=== PATIENT | male | born 1960 ===

== ENCOUNTER 2018-06-23 20:32 | Emergency (ER) | payer OTHER ==
[2018-06-23 20:41] VITALS: RESP 16
--- NOTE | 2018-06-23 20:49 | C.PDOC ---
History Of Present Illness 58 year old male presents to the emergency department with complaints of increased blood sugar over the last few days. Patient states that he experienced nausea and vomiting today, but denies fever or chills. He states that he has not been checking his sugar levels for the last few days. Time Seen by Provider: 06/23/18 20:49 Chief Complaint (Nursing): High Blood Sugar History Per: Patient History/Exam Limitations: no limitations Onset/Duration Of Symptoms: Days Current Symptoms Are (Timing): Still Present Severity: Moderate Pain Scale Rating Of: 4 Associated Infectious Symptoms: Nausea, Vomiting. denies: Other (fever, chills) Past Medical History Reviewed: Historical Data, Nursing Documentation, Vital Signs Vital Signs: Last Vital Signs Temp 97.8 F 06/23/18 20:38 Pulse 90 06/23/18 20:38 Resp 16 06/23/18 20:38 BP 142/98 H 06/23/18 20:38 Pulse Ox 99 06/23/18 20:38 - Medical History PMH: HTN Surgical History: No Surg Hx Family History: States: No Known Family Hx - Social History Hx Alcohol Use: No Hx Substance Use: No Review Of Systems Constitutional: Negative for: Fever, Chills Gastrointestinal: Positive for: Nausea, Vomiting Physical Exam - Physical Exam Appears: Non-toxic, In Acute Distress (anxious) Skin: Warm, Dry Head: Normacephalic Eye(s): bilateral: Normal Inspection, PERRL, EOMI Oral Mucosa: Moist Neck: Trachea Midline, Supple Chest: Symmetrical, No Tenderness Cardiovascular: Rhythm Regular, No Murmur Respiratory: No Rales, No Rhonchi, No Wheezing Gastrointestinal/Abdominal: Soft, No Tenderness, No Guarding, No Rebound Pulses: Left Dorsalis Pedis: Normal, Right Dorsalis Pedis: Normal Neurological/Psych: Oriented x3 ED Course And Treatment - Laboratory Results Result Diagrams: 06/23/18 20:59 06/23/18 20:59 ECG: Interpreted By Me, Viewed By Me ECG Rhythm: Sinus Rhythm (88) O2 Sat by Pulse Oximetry: 99 (RA) Pulse Ox Interpretation: Normal Progress Note: Plan: VBG. EKG. Beta Hydroxybutyrate. CMP. CBC. Ativan 0.5mg. NaCl IV Fluids. Zofran 4mg IVP. Urinalysis Reevaluation Time: 23:41 Reassessment Condition: Improved Disposition Counseled Patient/Family Regarding: Studies Performed, Diagnosis, Need For Followup - Disposition Disposition: HOME/ ROUTINE Disposition Time: 20:49 Condition: FAIR Additional Instructions: please return if symptoms recur Instructions: Hyperglycemia, Adult (DC) Forms: [facility] ([place]riac) - Clinical Impression Clinical Impression: Hyperglycemia - Scribe Statement The provider has reviewed the documentation as recorded by the Scribe (Ever Ricardo) Provider Attestation: All medical record entries made by the Scribe were at my direction and personally dictated by me. I have reviewed the chart and agree that the record accurately reflects my personal performance of the history, physical exam, medical decision making, and the department course for this patient. I have also personally directed, reviewed, and agree with the discharge instructions and disposition.
[2018-06-23] MEDS ORDERED: Sodium Chloride 0.9% 1,000 ML IV ONE (20:50)
[2018-06-23 21:03] LABS: VENOUS BLOOD GAS BASE EXCESS 0.8 mmol/L (0.0-2.0); VENOUS BLOOD GAS PCO2 46 mmHg (40-60); VENOUS BLOOD GAS PO2 43 mm/Hg (30-55); VENOUS BLOOD PH 7.37 (7.32-7.43)
[2018-06-23 21:05] LABS: BASO % 0.7 % (0.0-2.0); EOS % 0.7 % (0.0-4.0); HEMOGLOBIN 14.4 g/dL (12.0-18.0); LYMPH # 2.3 K/uL (1.0-4.3); LYMPH % 33.9 % (20.0-40.0); MEAN CELL VOLUME 96.3 fL (80.0-94.0); MEAN CORPUSCULAR HEMOGLOBIN 31.8 pg (27.0-31.0); MEAN PLATELET VOLUME 9.3 fL (7.2-11.7); MONO # 0.5 K/uL (0.0-0.8); MONO % 6.6 % (0.0-10.0); NEUT % 58.1 % (50.0-75.0); RBC 4.54 Mil/uL (4.40-5.90); WHITE BLOOD COUNT 6.9 K/uL (4.8-10.8)
[2018-06-23 21:17] LABS: ALB/GLOB RATIO 1.6 (1.0-2.1); ALBUMIN 3.8 g/dL (3.5-5.0); ALT/SGPT 96 U/L (21-72); AST/SGOT 69 U/L (17-59); BLOOD UREA NITROGEN 11 mg/dL (9-20); GFR NON-AFRICAN AMERICAN > 60
[2018-06-23 21:18] LABS: URINE BILIRUBIN NEGATIVE (NEGATIVE); URINE BLOOD NEGATIVE (NEGATIVE); URINE CLARITY Clear (Clear); URINE COLOR Straw (YELLOW); URINE GLUCOSE (UA) 3+ mg/dL (Normal); URINE LEUKOCYTE ESTERASE NEG Leu/uL (Negative); URINE PROTEIN NEGATIVE (NEGATIVE); URINE UROBILINOGEN NORMAL mg/dL (0.2-1.0)
[2018-06-23 21:53] VITALS: PULSE 86
[2018-06-23 22:00] VITALS: O2SAT 99
[2018-06-23 23:36] LABS: VENOUS BLOOD GAS BASE EXCESS -11.4 mmol/L (0.0-2.0); VENOUS BLOOD GAS PCO2 25 mmHg (40-60); VENOUS BLOOD GAS PO2 44 mm/Hg (30-55); VENOUS BLOOD PH 7.32 (7.32-7.43)
[2018-06-24 00:15] VITALS: BP 113/62; TEMP 98
--- NOTE | 2018-06-25 21:59 | CARD ---
APPROVED REPORT Date of service: 06/23/2018 EKG Measurement Heart [id number] <Conclusion> Normal sinus rhythm Normal ECG
== END 2018-06-24 00:16 | disposition home or self-care (01) ==
LOC: C.ER 20:32
DX: R73.9 Hyperglycemia, unspecified (principal); I10 Essential (primary) hypertension
CPT/HCPCS: 80053; 81001; 82009; 82803; 82948; 85025; 93005; 96374; 96375; 99285; J2060; J2405; J7030

== ENCOUNTER 2018-08-25 20:13 | Inpatient (IN) | payer OTHER ==
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
[2018-08-25 21:29] LABS: BASO # 0.2 K/uL (0.0-0.2); BASO % 3.1 % (0.0-2.0); EOS # 0.1 K/uL (0.0-0.7); EOS % 1.1 % (0.0-4.0); HEMOGLOBIN 14.9 g/dL (12.0-18.0); LYMPH # 1.6 K/uL (1.0-4.3); LYMPH % 26.6 % (20.0-40.0); MEAN CELL VOLUME 96.1 fL (80.0-94.0); MEAN CORPUSCULAR HEMOGLOBIN 32.7 pg (27.0-31.0); MEAN PLATELET VOLUME 9.7 fL (7.2-11.7); MONO # 0.4 K/uL (0.0-0.8); MONO % 6.8 % (0.0-10.0); NEUT # 3.8 K/uL (1.8-7.0); NEUT % 62.4 % (50.0-75.0); NRBC % 0.1 % (0.0-2.0); PLATELET COUNT 156 K/uL (130-400); RBC 4.57 Mil/uL (4.40-5.90); RED CELL DISTRIBUTION WIDTH 14.3 % (11.5-14.5); WHITE BLOOD COUNT 6.1 K/uL (4.8-10.8)
[2018-08-25 21:40] LABS: ALB/GLOB RATIO 1.3 (1.0-2.1); ALBUMIN 3.5 g/dL (3.5-5.0); ALT/SGPT 66 U/L (21-72); AST/SGOT 104 U/L (17-59); BLOOD UREA NITROGEN 14 mg/dL (9-20); CALCIUM 8.3 mg/dl (8.6-10.4); GFR NON-AFRICAN AMERICAN > 60
[2018-08-25 21:48] LABS: BASOPHIL 1 % (0-2); EOSINOPHIL 2 % (0-4); LYMPHOCYTE 16 % (20-40); MONOCYTE 7 % (0-10); NEUTROPHIL 74 % (50-75); PLATELET ESTIMATE NORMAL (NORMAL); TOTAL CELLS COUNTED 100
[2018-08-25 21:49] LABS: ANISOCYTOSIS SLIGHT
[2018-08-25 21:50] LABS: LARGE PLATELETS PRESENT
[2018-08-25] MEDS ORDERED: (Novolin R) Insulin Human Regular 100 units/ml vial SC STA (22:06)
[2018-08-25 22:19] LABS: URINE BACTERIA RARE (<OCC); URINE BILIRUBIN NEGATIVE (NEGATIVE); URINE BLOOD NEGATIVE (NEGATIVE); URINE CLARITY Clear (Clear); URINE COLOR Yellow (YELLOW); URINE GLUCOSE (UA) 3+ mg/dL (Normal); URINE LEUKOCYTE ESTERASE NEG Leu/uL (Negative); URINE PROTEIN NEGATIVE (NEGATIVE); URINE UROBILINOGEN NORMAL mg/dL (0.2-1.0)
[2018-08-25] MEDS ORDERED: (Novolin R) Insulin Human Regular 100 units/ml vial ONE (22:22)
[2018-08-25 22:35] LABS: BARBITURATES, UR NEGATIVE (NEGATIVE); BENZODIAZEPINES, UR NEGATIVE (NEGATIVE); OPIATES, UR NEGATIVE (NEGATIVE); PHENCYCLIDINE, UR NEGATIVE (NEGATIVE)
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
[2018-08-26 06:43] VITALS: O2SAT 100
[2018-08-26] MEDS ORDERED: (Novolin R) Insulin Human Regular 100 units/ml vial SC ONE ×2 (07:48→12:47)
[2018-08-26] MEDS ORDERED: Glucagon Recombinant 1 mg Inj IM PRN ×2 (12:58→23:28)
[2018-08-26] MEDS ORDERED: Dextrose 50% SYRINGE Inj (50 ml) IV PRN (12:58)
--- NOTE | 2018-08-26 13:06 | CP.PCM.CON ---
<Alicia Buchanan - Last Filed: 08/26/18 14:48> History of Present Illness - History of Present Illness History of Present Illness: PGY-1 Alicia Buchanan D.O. Medicine consult note for Dr. Davalos's service: Patient is a 58 yo male with a history of T2DM, HTN, depression, and alcohol use who is admitted to the psychiatric unit for suicidal ideation and depression. Hospitalists were consulted for elevated blood glucose and vomiting. His glucose is elevated in the 300s, requiring stat doses of insulin. Additionally, patient's BAL on admission was 274. Patient states that he was diagnosed with DM about 30 years ago. He has a strong family history of DM. He takes oral meds and insulin at home. He states that he checks his sugar every morning, and it is always in the 300s. He checks again at night and it is always in the 500s-600s. He denies previous hospitalization for DKA. He says he sees his PMD every 3 months and has been compliant with his meds (except yesterday when he was admitted). Denies seeing an automatic transmission mechanic. He also endorses decreased appetite, vomiting, and weight loss over the past 3 months. He says he went from 160 to 133 lb during this time. He had an EGD, and, per patient, no abnormalities found. He is scheduled to have a colonoscopy this coming . Patient reports vomiting "water" 3 times this morning. A one time dose of Zofran relieved his nausea. He currently denies nausea but states he does not have an appetite and did not eat lunch. He denies fevers, chills, chest pain, SOB, abdominal pain, diarrhea, constipation. PMH: T2DM HTN Depression Denies heart or kidney disease PSH: b/l hernia repair Meds: Metformin 1000 mg PO BID Glipizide 40 mg PO daily Humalog 20 units QAM, 30 units QPM Antidepressant- patient does not recall name All: iodine- hives FH: Mother, father, sister- DM Mother- 2 MIs, renal transplant SH: Lives in [place] with Has 5 adult children Works as cook at [employer] Smoked 5 cigs/day x 43 yrs- quit 7 months ago Drinks 3 shots of vodka/day x 43 yrs Denies illicit drug use, including IVDA PMD: Dr. Eagle Review of Systems - Constitutional Constitutional: As Per HPI, Anorexia, Weight Loss. absent: Chills, Fever, Headache - EENT Eyes: absent: Change in Vision Ears: absent: Decreased Hearing Nose/Mouth/Throat: absent: Nasal Congestion - Cardiovascular Cardiovascular: absent: Chest Pain, Dyspnea, Irregular Heart Rhythm, Palpitations - Respiratory Respiratory: absent: Cough, Dyspnea - Gastrointestinal Gastrointestinal: As Per HPI, Nausea, Vomiting. absent: Abdominal Pain, Constipation, Diarrhea - Genitourinary Genitourinary: absent: Dysuria, Hematuria - Musculoskeletal Musculoskeletal: absent: Myalgias, Numbness, Tingling - Integumentary Integumentary: absent: Lesions, Rash - Neurological Neurological: Tremor. absent: Dizziness, Numbness, Focal Weakness, Syncope, Tingling, Weakness - Psychiatric Psychiatric: Anxiety, Depression, Suicidal Ideation. absent: Hallucinations - Endocrine Endocrine: absent: Fatigue, Palpitations, Polydipsia, Polyphagia, Polyuria - Hematologic/Lymphatic Hematologic: absent: Easy Bleeding, Easy Bruising, Lymphadenopathy Past Patient History - Infectious Disease Hx of Infectious Diseases: None - Tetanus Immunizations Tetanus Immunization: Unknown - Past Medical History & Family History Past Medical History?: Yes Pertinent Family History: mother, father, sister- DM - Past Social History Smoking Status: Never Smoked Chewing Tobacco Use: No Cigar Use: No Alcohol: Social Drugs: Denies Home Situation {Lives}: With Family () - CARDIAC Hx Cardiac Disorders: No Hx Hypertension: Yes - PULMONARY Hx Respiratory Disorders: No Hx Tuberculosis: No - NEUROLOGICAL HX Cerebrovascular Accident: No Hx Seizures: Yes (Pt reported having a seizure 1 yr ago.) - HEENT Hx HEENT Problems: No - ENDOCRINE/METABOLIC Hx Diabetes Mellitus Type 2: Yes - HEMATOLOGICAL/ONCOLOGICAL Hx Blood Disorders: No Hx Cancer: No Hx Human Immunodeficiency Virus (HIV): No - INTEGUMENTARY Hx Dermatological Problems: No - MUSCULOSKELETAL/RHEUMATOLOGICAL Hx Musculoskeletal Disorders: No - GASTROINTESTINAL Hx Gastrointestinal Disorders: No - GENITOURINARY/GYNECOLOGICAL Hx Genitourinary Disorders: No Hx Sexually Transmitted Disorders: No - PSYCHIATRIC Hx Substance Use: No - SURGICAL HISTORY Hx Herniorrhaphy: Yes (30 yrs ago) - ANESTHESIA Hx Anesthesia: No Meds Allergies/Adverse Reactions: Allergies Allergy/AdvReac Type Severity Reaction Status Date / Time iodine Allergy SHORTNESS Verified 08/26/18 00:42 OF BREATH shellfish derived Allergy SHORTNESS Verified 08/26/18 00:42 OF BREATH - Medications Medications: Current Medications Clonidine HCl (Catapres) 0.1 mg PO Q4H PRN PRN Reason: Symptoms of alcohol withdrawl Folic Acid (Folic Acid) 1 mg PO DAILY [facility] Hydroxyzine HCl (Atarax) 50 mg PO Q6H PRN PRN Reason: Anxiety Last Admin: 08/26/18 00:38 Dose: 50 mg Ibuprofen (Motrin Tab) 400 mg PO Q6 PRN PRN Reason: Pain, moderate (4-7) Influenza Virus Vaccine (Fluzone Quad [id number]) 60 mcg IM .ONCE ONE Stop: 08/29/18 10:01 Lorazepam (Ativan) 2 mg PO Q4 [facility]; Taper Stop: 08/31/18 12:29 Lorazepam (Ativan) 1 mg PO Q4H PRN PRN Reason: Symptoms of alcohol withdrawl Multivitamins (Hexavitamin) 1 tab PO DAILY [facility] Ondansetron HCl (Zofran Inj) 4 mg IM DAILY@ONCE PRN PRN Reason: Nausea/Vomiting Last Admin: 08/26/18 12:26 Dose: 4 mg Pneumococcal Polyvalent Vaccine (Pneumovax 23 Vaccine) 0.5 ml IM .ONCE ONE Stop: 08/29/18 10:01 Thiamine HCl (Vitamin B1 Tab) 100 mg PO DAILY [facility] Trazodone HCl (Desyrel) 50 mg PO HS PRN PRN Reason: insomnia Stop: 09/25/18 00:24 Last Admin: 08/26/18 00:38 Dose: 50 mg Physical Exam - Constitutional Appears: No Acute Distress - Head Exam Head Exam: ATRAUMATIC, NORMAL INSPECTION, NORMOCEPHALIC - Eye Exam Eye Exam: EOMI, Normal appearance, PERRL - ENT Exam ENT Exam: Mucous Membranes Moist - Neck Exam Neck exam: Positive for: Normal Inspection - Respiratory Exam Respiratory Exam: Clear to Auscultation Bilateral, NORMAL BREATHING PATTERN - Cardiovascular Exam Cardiovascular Exam: REGULAR RHYTHM, +S1, +S2 - GI/Abdominal Exam GI & Abdominal Exam: Normal Bowel Sounds, Soft - Rectal Exam Rectal Exam: Deferred - Extremities Exam Extremities exam: Positive for: normal inspection. Negative for: pedal edema, tenderness - Back Exam Back exam: NORMAL INSPECTION - Neurological Exam Neurological exam: Alert, CN II-XII Intact, Normal Gait, Oriented x3 - Psychiatric Exam Psychiatric exam: Normal Affect, Normal Mood - Skin Skin Exam: Dry, Intact, Normal Color, Warm Results - Vital Signs Recent Vital Signs: Last Vital Signs Temp 99.0 F 08/26/18 06:42 Pulse 96 H 08/26/18 06:42 Resp 19 08/26/18 06:42 BP 156/87 H 08/26/18 06:42 Pulse Ox 100 08/26/18 06:42 - Labs Result Diagrams: 08/25/18 21:24 08/26/18 14:08 Labs: Laboratory Results - last 24 hr 08/25/18 08/25/18 08/25/18 21:24 21:24 22:14 WBC 6.1 RBC 4.57 Hgb 14.9 Hct 43.9 MCV 96.1 H MCH 32.7 H MCHC 34.0 RDW 14.3 Plt Count 156 MPV 9.7 Neut % (Auto) 62.4 Lymph % (Auto) 26.6 Saunders % (Auto) 6.8 Eos % (Auto) 1.1 Baso % (Auto) 3.1 H Neut # (Auto) 3.8 Lymph # (Auto) 1.6 Saunders # (Auto) 0.4 Eos # (Auto) 0.1 Baso # (Auto) 0.2 Neutrophils % (Manual) 74 Lymphocytes % (Manual) 16 L Monocytes % (Manual) 7 Eosinophils % (Manual) 2 Basophils % (Manual) 1 Platelet Estimate Normal Large Platelets Present Anisocytosis (manual) Slight Macrocytosis (manual) Slight Sodium 134 Potassium 4.7 Chloride 96 L Carbon Dioxide 22 Anion Gap 21 H BUN 14 Creatinine 0.7 L Est GFR ( Amer) > 60 Est GFR (Non-Af Amer) > 60 POC Glucose (mg/dL) Random Glucose 355 H Calcium 8.3 L Phosphorus 2.9 Magnesium 1.4 L Total Bilirubin 0.9 AST 104 H D ALT 66 Alkaline Phosphatase 183 H Total Protein 6.2 L Albumin 3.5 Globulin 2.7 Albumin/Globulin Ratio 1.3 Urine Color Yellow Urine Clarity Clear Urine pH 6.0 Ur Specific Marshall 1.029 Urine Protein Negative Urine Glucose (UA) 3+ H Urine Ketones Trace Urine Blood Negative Urine Nitrate Negative Urine Bilirubin Negative Urine Urobilinogen Normal Ur Leukocyte Esterase Neg Urine WBC (Auto) 1 Urine RBC (Auto) < 1 Urine Bacteria Rare Urine Opiates Screen Urine Methadone Screen Ur Barbiturates Screen Ur Phencyclidine Scrn Ur Amphetamines Screen U Benzodiazepines Scrn U Oth Cocaine Metabols U Cannabinoids Screen Alcohol, Quantitative 274 H 08/25/18 08/26/18 08/26/18 22:14 07:32 09:57 WBC RBC Hgb Hct MCV MCH MCHC RDW Plt Count MPV Neut % (Auto) Lymph % (Auto) Saunders % (Auto) Eos % (Auto) Baso % (Auto) Neut # (Auto) Lymph # (Auto) Saunders # (Auto) Eos # (Auto) Baso # (Auto) Neutrophils % (Manual) Lymphocytes % (Manual) Monocytes % (Manual) Eosinophils % (Manual) Basophils % (Manual) Platelet Estimate Large Platelets Anisocytosis (manual) Macrocytosis (manual) Sodium Potassium Chloride Carbon Dioxide Anion Gap BUN Creatinine Est GFR ( Amer) Est GFR (Non-Af Amer) POC Glucose (mg/dL) 336 H 329 H Random Glucose Calcium Phosphorus Magnesium Total Bilirubin AST ALT Alkaline Phosphatase Total Protein Albumin Globulin Albumin/Globulin Ratio Urine Color Urine Clarity Urine pH Ur Specific Marshall Urine Protein Urine Glucose (UA) Urine Ketones Urine Blood Urine Nitrate Urine Bilirubin Urine Urobilinogen Ur Leukocyte Esterase Urine WBC (Auto) Urine RBC (Auto) Urine Bacteria Urine Opiates Screen Negative Urine Methadone Screen Negative Ur Barbiturates Screen Negative Ur Phencyclidine Scrn Negative Ur Amphetamines Screen Negative U Benzodiazepines Scrn Negative U Oth Cocaine Metabols Negative U Cannabinoids Screen Negative Alcohol, Quantitative 08/26/18 12:20 WBC RBC Hgb Hct MCV MCH MCHC RDW Plt Count MPV Neut % (Auto) Lymph % (Auto) Saunders % (Auto) Eos % (Auto) Baso % (Auto) Neut # (Auto) Lymph # (Auto) Saunders # (Auto) Eos # (Auto) Baso # (Auto) Neutrophils % (Manual) Lymphocytes % (Manual) Monocytes % (Manual) Eosinophils % (Manual) Basophils % (Manual) Platelet Estimate Large Platelets Anisocytosis (manual) Macrocytosis (manual) Sodium Potassium Chloride Carbon Dioxide Anion Gap BUN Creatinine Est GFR ( Amer) Est GFR (Non-Af Amer) POC Glucose (mg/dL) 338 H Random Glucose Calcium Phosphorus Magnesium Total Bilirubin AST ALT Alkaline Phosphatase Total Protein Albumin Globulin Albumin/Globulin Ratio Urine Color Urine Clarity Urine pH Ur Specific Marshall Urine Protein Urine Glucose (UA) Urine Ketones Urine Blood Urine Nitrate Urine Bilirubin Urine Urobilinogen Ur Leukocyte Esterase Urine WBC (Auto) Urine RBC (Auto) Urine Bacteria Urine Opiates Screen Urine Methadone Screen Ur Barbiturates Screen Ur Phencyclidine Scrn Ur Amphetamines Screen U Benzodiazepines Scrn U Oth Cocaine Metabols U Cannabinoids Screen Alcohol, Quantitative - EKG Data EKG Interpreted by: Myself EKG shows normal: Sinus rhythm Rate: Normal - EKG Data EKG comments: QTc 464 Assessment & Plan - Assessment and Plan (Free Text) Assessment: Patient is a 58 yo male with history of T2DM and HTN. He is currently admitted to the psych unit for depression and suicidal ideation. Medicine consulted for elevated glucose and vomiting. Patient is being worked up as an outpatient for vomiting and weight loss. Patient reports uncontrolled glucose at home despite m edication compliance. Plan: Type 2 diabetes mellitis- presently complaining of vomiting, r/o DKA - BMP: CO2 33, K 4, BG 240 - AG 8 - Beta-hydroxybutarate 0.09 - ABG pending - A1c 9.9 - Lipid panel wnl - UA: 3+ glucose, trace ketones - EKG: NSR, QTc 464 - Hypoglycemic protocol - Accuchecks ACHS with ISS (low) - Diabetic diet - Restart home DM meds - Metformin 100 mg PO BID - Glipizide 40 mg PO daily - Novolog 20 u SC QAM, 30 u SC QPM Hypertension - Monitor vitals Q4H - Clonidine 0.1 mg PO Q4H PRN - Lisinopril 5 mg PO daily Depression with suicidal ideation - Management as per psychiatry - Trazodone 50 mg PO QHS Alcohol use disorder - Withdrawal management as per psychiatry - BAL 278 on admission - AST 104, ALT 66 - CXR: no signs of aspiration - Ativan 2 mg PO Q4H - Ativan 1 mg PO Q4H PRN - Clonidine 0.1 mg PO Q4H PRN - Motrin 400 mg PO Q6H PRN - Atarax 50 mg PO Q6H PRN - MV, thiamine, folate - Cessation counseling H/o Tobacco use- 5 cigarettes/day x43 years - Lung screen 08/09/18: Lung-RADS: 2, solid 5 millimeter nodule with very low likelihood of becoming a clinically active cancer due to size. Continue annual screening with LDCT in 12 months. - CXR: Mild venous congestion. Right hilar prominence. Patchy increased markings in the right infrahilar region. Tortuous aorta. Top normal heart size. Biapical pleural thickening. Case was discussed with attending, Dr. Davalos. Patient is not in DKA. No indication to be transferred to med/surg at this time. Will continue to follow the patient. <Germania Davalos V - Last Filed: 08/26/18 23:59> Meds - Medications Medications: Current Medications Clonidine HCl (Catapres) 0.1 mg PO Q4H PRN PRN Reason: Symptoms of alcohol withdrawl Dextrose (Glutose 15) 0 gm PO ONCE PRN; Protocol PRN Reason: Hypoglycemia Protocol Dextrose (Dextrose 50% Inj) 0 ml IVP .STAT PRN; Protocol PRN Reason: Hypoglycemia Protocol Dextrose (Glutose 15) 0 gm PO .ONCE PRN; Protocol PRN Reason: Hypoglycemia Protocol Enalapril Maleate (Vasotec) 10 mg PO DAILY [facility] Last Admin: 08/26/18 15:52 Dose: 10 mg Folic Acid (Folic Acid) 1 mg PO DAILY [facility] Last Admin: 08/26/18 13:09 Dose: 1 mg Glipizide (Glucotrol) 40 mg PO DAILY [facility] Glucagon (Glucagen Diagnostic Kit) 0 mg IM STAT PRN; Protocol PRN Reason: Hypoglycemia Protocol Glucagon (Glucagen Diagnostic Kit) 0 mg IM .STAT PRN; Protocol PRN Reason: Hypoglycemia Protocol Hydroxyzine HCl (Atarax) 50 mg PO Q6H PRN PRN Reason: Anxiety Last Admin: 08/26/18 00:38 Dose: 50 mg Dextrose (Dextrose 5% In Water 1000 Ml) 1,000 mls @ 0 mls/hr IV .Q0M PRN; Protocol PRN Reason: Hypoglycemia Protocol Ibuprofen (Motrin Tab) 400 mg PO Q6 PRN PRN Reason: Pain, moderate (4-7) Influenza Virus Vaccine (Fluzone Quad [id number]) 60 mcg IM .ONCE ONE Stop: 08/29/18 10:01 Insulin Aspart (Novolog) 0 unit SC ACHS [facility]; Protocol Last Admin: 08/26/18 21:57 Dose: Not Given Insulin Aspart (Novolog) 20 unit SC ACB [facility] Insulin Aspart (Novolog) 30 unit SC QPM [facility] Last Admin: 08/26/18 18:49 Dose: Not Given Lorazepam (Ativan) 2 mg PO Q4 [facility]; Taper Stop: 08/31/18 12:29 Last Admin: 08/26/18 20:19 Dose: Not Given Lorazepam (Ativan) 1 mg PO Q4H PRN PRN Reason: Symptoms of alcohol withdrawl Metformin HCl (Glucophage) 1,000 mg PO BIDCC [facility] Last Admin: 08/26/18 17:33 Dose: 1,000 mg Multivitamins (Hexavitamin) 1 tab PO DAILY [facility] Last Admin: 08/26/18 13:09 Dose: 1 tab Ondansetron HCl (Zofran Inj) 4 mg IM DAILY@ONCE PRN PRN Reason: Nausea/Vomiting Last Admin: 08/26/18 12:26 Dose: 4 mg Ondansetron HCl (Zofran Tab) 4 mg PO Q6 PRN PRN Reason: Nausea/Vomiting Pneumococcal Polyvalent Vaccine (Pneumovax 23 Vaccine) 0.5 ml IM .ONCE ONE Stop: 08/29/18 10:01 Thiamine HCl (Vitamin B1 Tab) 100 mg PO DAILY [facility] Last Admin: 08/26/18 13:09 Dose: 100 mg Trazodone HCl (Desyrel) 50 mg PO HS PRN PRN Reason: insomnia Stop: 09/25/18 00:24 Last Admin: 08/26/18 22:10 Dose: 50 mg Results - Vital Signs Recent Vital Signs: Last Vital Signs Temp 99.0 F 08/26/18 06:42 Pulse 85 08/26/18 16:08 Resp 19 08/26/18 06:42 BP 155/94 H 08/26/18 16:08 Pulse Ox 100 08/26/18 06:42 - Labs Result Diagrams: 08/25/18 21:24 08/26/18 14:08 Labs: Laboratory Results - last 24 hr 08/26/18 08/26/18 08/26/18 07:32 09:57 12:20 Sodium Potassium Chloride Carbon Dioxide Anion Gap BUN Creatinine Est GFR ( Amer) Est GFR (Non-Af Amer) POC Glucose (mg/dL) 336 H 329 H 338 H Random Glucose Hemoglobin A1c Calcium Phosphorus Magnesium Triglycerides Cholesterol LDL Cholesterol Direct HDL Cholesterol B-Hydroxybutyrate 08/26/18 08/26/18 08/26/18 14:07 14:08 16:26 Sodium 133 Potassium 4.0 Chloride 92 L Carbon Dioxide 33 H Anion Gap 12 BUN 16 Creatinine 0.6 L Est GFR ( Amer) > 60 Est GFR (Non-Af Amer) > 60 POC Glucose (mg/dL) 103 Random Glucose 240 H Hemoglobin A1c 9.9 H Calcium 8.7 Phosphorus 2.6 Magnesium 1.5 L Triglycerides 52 Cholesterol 138 LDL Cholesterol Direct 62 HDL Cholesterol 91 H B-Hydroxybutyrate 0.09 08/26/18 20:03 Sodium Potassium Chloride Carbon Dioxide Anion Gap BUN Creatinine Est GFR ( Amer) Est GFR (Non-Af Amer) POC Glucose (mg/dL) 109 Random Glucose Hemoglobin A1c Calcium Phosphorus Magnesium Triglycerides Cholesterol LDL Cholesterol Direct HDL Cholesterol B-Hydroxybutyrate Attending/Attestation - Attestation I have personally seen and examined this patient.: Yes I have fully participated in the care of the patient.: Yes I have reviewed all pertinent clinical information: Yes Notes (Text): Medicine consult patient with known history of diabetes, uncontrolled. Patient reports he takes humalog 15 in AM; 30 in PM; metformin, glipizde. he reports his sugars are 300 in the morning and are 500 in the evening. Patient has been getting stat doses of insulin by psych prior to consult. held off glipizde. Awaiting a1c. Patient does not have an elevated b-hydroxybutyrate. Patient does not have an elevated gap. Will seek endocrinology as well. Patient had been previously vomitting earlier but is now controlled at time of evaluation. Patient had been given zofran which has helped. Patient reports he is chronic drinker for multiple years with depression symptoms. He has not taken his medications day of admission including insulin. We have adjusted his diet. Restarted his home medications. Added accuchecks Q6H. Assessment/Plan 1) Type 2 diabetes mellitis- presently complaining of vomiting, r/o DKA Assessment/Plan * uncontrolled * Patient is not in DKA--> BMP: CO2 33, K 4, BG 240 and AG 8 * Beta-hydroxybutarate 0.09 * A1c 9.9 * Lipid panel wnl * UA: 3+ glucose, trace ketones * EKG: NSR, QTc 464 * Hypoglycemic protocol * Accuchecks Q6H with ISS (low) * Diabetic diet * Restart home DM meds - Metformin 100 mg PO BID - hel d Glipizide 40 mg PO daily - Novolog 10 u SC QAM, 30 u SC QPM 2) Hypertension Assessment/Plan * Monitor vitals Q4H * Clonidine 0.1 mg PO Q4H PRN * Lisinopril 5 mg PO daily 3) Depression with suicidal ideation * Management as per psychiatry * Trazodone 50 mg PO QHS 4) Alcohol use disorder * Withdrawal management as per psychiatry * BAL 278 on admission * AST 104, ALT 66 * CXR: no signs of aspiration * Ativan 2 mg PO Q4H * Ativan 1 mg PO Q4H PRN * Clonidine 0.1 mg PO Q4H PRN * Motrin 400 mg PO Q6H PRN * Atarax 50 mg PO Q6H PRN * MV, thiamine, folate * Cessation counseling 5) H/o Tobacco use- 5 cigarettes/day x43 years * Lung screen 08/09/18: Lung-RADS: 2, solid 5 millimeter nodule with very low likelihood of becoming a clinically active cancer due to size. Continue annual screening with LDCT in 12 months. * CXR: Mild venous congestion. Right hilar prominence. Patchy increased markings in the right infrahilar region. Tortuous aorta. Top normal heart size. Biapical pleural thickening.
[2018-08-26] MEDS: Multiple Vitamins Tab PO SCH (13:09)
--- NOTE | 2018-08-26 13:53 | PCM.PSYCH ---
Initial Psychiatric Evaluation - Initial Psychiatric Evaluation Type of Admission: Voluntary Legal Status: Capacity Chief Complaint (in patient's own words): I'm depressed and started having some bad thoughts. History of Present Illness and Precipitating Events: Patient is a 58 years old, , employed, male with history of depression and suicidal ideations for last 7 months, was taking some antidepressive medications prescribed by his PCP. Patient couldn't recall the name of the medications. Patient reported that yesterday he attempted to kill himself by grabbing a knife, family intervened and brought the patient to ER for evaluation and treatment. Patient reported that he lost some weight due to decreased appetite. Also reported decreased sleep. Denied any psychotic, manic or anxiety symptoms. No history of previous inpatient psychiatric admission. This is patient's first admission. Patient was evaluated using translation services. [employer] [id number]. Alcohol: Started at 11 years of age, increased gradually. Last used yesterday, 3 shots of vodka. Denied use of any other drugs including cocaine, cannabis or heroin. Doesn't smoke cigarettes. Patient was born in [place], has eighth grade of education. Migrated to [facility] in 1975. Working. Patient's and has 5 grown up children. Lives with family. His height is 5 feet 7 inches and weight is 133 pounds. Current Medications: Active Medications Generic Name Dose Route Start Last Admin Trade Name Freq PRN Reason Stop Dose Admin Clonidine HCl 0.1 mg 08/26/18 12:17 Catapres PO Q4H PRN Symptoms of alcohol withdrawl Dextrose 0 gm 08/26/18 12:58 Glutose 15 PO ONCE PRN Hypoglycemia Protocol Protocol Folic Acid 1 mg 08/26/18 12:30 08/26/18 13:09 Folic Acid PO 1 mg DAILY DAJUAN Administration Glucagon 0 mg 08/26/18 12:58 Glucagen Diagnostic Kit IM STAT PRN Hypoglycemia Protocol Protocol Hydroxyzine HCl 50 mg 08/26/18 00:25 08/26/18 00:38 Atarax PO 50 mg Q6H PRN Administration Anxiety Ibuprofen 400 mg 08/26/18 12:19 Motrin Tab PO Q6 PRN Pain, moderate (4-7) Influenza Virus Vaccine 60 mcg 08/29/18 10:00 Fluzone Quad [id number] IM 08/29/18 10:01 .ONCE ONE Insulin Aspart 0 unit 08/26/18 16:30 Novolog SC ACHS DAJUAN Protocol Lorazepam 2 mg 08/26/18 12:30 Ativan PO 08/31/18 12:29 Q4 DAJUAN Taper Lorazepam 1 mg 08/26/18 12:17 Ativan PO Q4H PRN Symptoms of alcohol withdrawl Multivitamins 1 tab 08/26/18 12:30 08/26/18 13:09 Hexavitamin PO 1 tab DAILY DAJUAN Administration Ondansetron HCl 4 mg 08/26/18 10:15 08/26/18 12:26 Zofran Inj IM 4 mg DAILY@ONCE PRN Administration Nausea/Vomiting Pneumococcal Polyvalent Vaccine 0.5 ml 08/29/18 10:00 Pneumovax 23 Vaccine IM 08/29/18 10:01 .ONCE ONE Thiamine HCl 100 mg 08/26/18 12:30 08/26/18 13:09 Vitamin B1 Tab PO 100 mg DAILY DAJUAN Administration Trazodone HCl 50 mg 08/26/18 00:23 08/26/18 00:38 Desyrel PO 09/25/18 00:24 50 mg HS PRN Administration insomnia Past Psychiatric History - Past Psychiatric History Previous Treatment History: None History of Abuse: None reported History of ETOH/Drug Use: See HPI History of Family Illness: None reported Pertinent Medical Hx (Current Medical&Sleep Prob, Allergies): Allergies Allergy/AdvReac Type Severity Reaction Status Date / Time iodine Allergy SHORTNESS Verified 08/26/18 00:42 OF BREATH shellfish derived Allergy SHORTNESS Verified 08/26/18 00:42 OF BREATH RX: Unobtainable 06/23/18 Diabetes mellitus Hypertension Review of Systems - Psychiatric Psychiatric: As Per HPI, Depression, Suicidal Ideation, Other Mental Status Examination - Personal Presentation Personal Presentation: Looks stated age - Affect Affect: Depressed - Motor Activity Motor Activity: Calm - Reliability in Providing Information Reliability in Providing Information: Fair - Speech Speech: Organized - Mood Mood: Depressed - Formal Thought Process Formal Thought Process: No Impairment - Hallucinations/Delusions Hallucinations: Other (None reported) Delusions: Other - Obsessions/Compulsions Obsessions: None Compulsions: None - Cognitive Functions Orientation: Person, Place, Situation, Time Sensorium: Alert Attention/Concentration: Attentive Abstract Thinking: [place] Estimate of Intelligence: Average Judgement: Intact, as evidence by: Insight regarding need for hospitalization Memory: Recent intact, as evidence by: Ability to recall events of the day, Remote intact, as evidenced by: Ability to recall historical events - Risk Risk: Withdrawal, Diminished functioning - Strength & Assets Inventory Strength & Assets Inventory: Family support, Cooperative - Limitations Limitations: Other (Lives with family) DSM 5 DX - DSM 5 DSM 5 Diagnosis: Major depressive disorder recurrent severe without psychotic features. Alcohol withdrawal. Alcohol use disorder severe. - Recommended/Plan of Treatment Treatment Recommendations and Plan of Treatment: Patient education. Neck Supportive therapy. CBT for relapse prevention. DC for abstinence. We'll start Ativan taper for alcohol withdrawal symptoms. Other when necessary medications. Projected ELOS: 8-10 days - Smoking Cessation Smoking Cessation Initiated: No Reason for not providing: Patient doesn't smoke cigarettes.
--- NOTE | 2018-08-26 14:13 | RAD ---
Chest x-ray single frontal view History: Aspiration. Comparison: None available. Findings: Mild venous congestion. Right hilar prominence. Patchy increased markings in the right infrahilar region. Tortuous aorta. Top normal heart size. Biapical pleural thickening. Degenerative changes in the spine. Degenerative changes in the shoulders with suggestion of a loose osteochondral body at the right glenohumeral joint space. Impression: Mild venous congestion. Right hilar prominence. Patchy increased markings in the right infrahilar region. Tortuous aorta. Top normal heart size. Biapical pleural thickening. Degenerative changes in the spine. Degenerative changes in the shoulders with suggestion of a loose osteochondral body at the right glenohumeral joint space.
[2018-08-26 14:35] LABS: BLOOD UREA NITROGEN 16 mg/dL (9-20); CALCIUM 8.7 mg/dl (8.6-10.4); GFR NON-AFRICAN AMERICAN > 60; HDL CHOLESTEROL 91 mg/dL (30-70)
[2018-08-26 14:38] LABS: LDL CHOLESTEROL 62 mg/dL (0-129)
[2018-08-26] MEDS ORDERED: Magnesium Chloride 64 mg ER Tab PO SCH (15:00)
[2018-08-26] MEDS ORDERED: GlipiZIDE 10 mg SR Tab PO SCH (16:00)
[2018-08-26] MEDS: (Novolog) Insulin Aspart, Recombinant 100 u/ml 10 ml vial SC SCH ×2 (16:37→21:57)
[2018-08-26] MEDS ORDERED: (Novolog) Insulin Aspart, Recombinant 100 u/ml 10 ml vial SC SCH (18:00)
[2018-08-26] MEDS ORDERED: Dextrose 50% SYRINGE Inj (50 ml) IVP PRN (23:28)
[2018-08-27] MEDS ORDERED: (Novolog) Insulin Aspart, Recombinant 100 u/ml 10 ml vial SC SCH ×2 (07:30)
[2018-08-27] MEDS: (Novolog) Insulin Aspart, Recombinant 100 u/ml 10 ml vial SC SCH ×6 (08:14→21:56)
--- NOTE | 2018-08-27 08:18 | CP.PCM.PN ---
<Víctor Worthy - Last Filed: 08/27/18 14:16> Subjective - Date & Time of Evaluation Date of Evaluation: 08/27/18 Time of Evaluation: 08:18 - Subjective Subjective: HOSPITALIST SERVICE- CONSULT Pt seen and examined in lunch room sitting comfortably eating breakfast. Pt denies any acute events overnight, no vomiting, reports a normal bm last night and normal urinary output/ color. Pt denies cp sob fc nausea loss of vision. Objective - Vital Signs/Intake and Output Vital Signs (last 24 hours): Temp Pulse Resp BP Pulse Ox 98.7 F 112 H 20 131/90 100 08/27/18 07:48 08/27/18 07:48 08/27/18 07:48 08/27/18 07:48 08/26/18 06:42 - Medications Medications: Current Medications Clonidine HCl (Catapres) 0.1 mg PO Q4H PRN PRN Reason: Symptoms of alcohol withdrawl Dextrose (Glutose 15) 0 gm PO ONCE PRN; Protocol PRN Reason: Hypoglycemia Protocol Dextrose (Dextrose 50% Inj) 0 ml IVP .STAT PRN; Protocol PRN Reason: Hypoglycemia Protocol Dextrose (Glutose 15) 0 gm PO .ONCE PRN; Protocol PRN Reason: Hypoglycemia Protocol Enalapril Maleate (Vasotec) 10 mg PO DAILY [facility] Last Admin: 08/26/18 15:52 Dose: 10 mg Folic Acid (Folic Acid) 1 mg PO DAILY [facility] Last Admin: 08/26/18 13:09 Dose: 1 mg Glucagon (Glucagen Diagnostic Kit) 0 mg IM STAT PRN; Protocol PRN Reason: Hypoglycemia Protocol Glucagon (Glucagen Diagnostic Kit) 0 mg IM .STAT PRN; Protocol PRN Reason: Hypoglycemia Protocol Hydroxyzine HCl (Atarax) 50 mg PO Q6H PRN PRN Reason: Anxiety Last Admin: 08/26/18 00:38 Dose: 50 mg Dextrose (Dextrose 5% In Water 1000 Ml) 1,000 mls @ 0 mls/hr IV .Q0M PRN; Protocol PRN Reason: Hypoglycemia Protocol Ibuprofen (Motrin Tab) 400 mg PO Q6 PRN PRN Reason: Pain, moderate (4-7) Influenza Virus Vaccine (Fluzone Quad [id number]) 60 mcg IM .ONCE ONE Stop: 08/29/18 10:01 Insulin Aspart (Novolog) 0 unit SC ACHS [facility]; Protocol Last Admin: 08/27/18 08:14 Dose: 5 units Insulin Aspart (Novolog) 30 unit SC QPM [facility] Last Admin: 08/26/18 18:49 Dose: Not Given Insulin Aspart (Novolog) 15 unit SC ACB [facility] Last Admin: 08/27/18 08:13 Dose: 15 units Lorazepam (Ativan) 2 mg PO Q4 [facility]; Taper Stop: 08/31/18 12:29 Last Admin: 08/27/18 08:10 Dose: 2 mg Lorazepam (Ativan) 1 mg PO Q4H PRN PRN Reason: Symptoms of alcohol withdrawl Metformin HCl (Glucophage) 1,000 mg PO BIDCC [facility] Last Admin: 08/26/18 17:33 Dose: 1,000 mg Multivitamins (Hexavitamin) 1 tab PO DAILY [facility] Last Admin: 08/26/18 13:09 Dose: 1 tab Ondansetron HCl (Zofran Inj) 4 mg IM DAILY@ONCE PRN PRN Reason: Nausea/Vomiting Last Admin: 08/26/18 12:26 Dose: 4 mg Ondansetron HCl (Zofran Tab) 4 mg PO Q6 PRN PRN Reason: Nausea/Vomiting Pneumococcal Polyvalent Vaccine (Pneumovax 23 Vaccine) 0.5 ml IM .ONCE ONE Stop: 08/29/18 10:01 Thiamine HCl (Vitamin B1 Tab) 100 mg PO DAILY [facility] Last Admin: 08/26/18 13:09 Dose: 100 mg Trazodone HCl (Desyrel) 50 mg PO HS PRN PRN Reason: insomnia Stop: 09/25/18 00:24 Last Admin: 08/26/18 22:10 Dose: 50 mg - Labs Labs: 08/25/18 21:24 08/26/18 14:08 - Additional Findings Additional findings: - Constitutional Appears: No Acute Distress - Head Exam Head Exam: ATRAUMATIC, NORMAL INSPECTION, NORMOCEPHALIC - Eye Exam Eye Exam: EOMI, Normal appearance, PERRL - ENT Exam ENT Exam: Mucous Membranes Moist - Neck Exam Neck exam: Positive for: Normal Inspection - Respiratory Exam Respiratory Exam: Clear to Auscultation Bilateral, NORMAL BREATHING PATTERN - Cardiovascular Exam Cardiovascular Exam: REGULAR RHYTHM, +S1, +S2 - GI/Abdominal Exam GI & Abdominal Exam: Normal Bowel Sounds, Soft - Rectal Exam Rectal Exam: Deferred - Extremities Exam Extremities exam: Positive for: normal inspection. Negative for: pedal edema, tenderness - Back Exam Back exam: NORMAL INSPECTION - Neurological Exam Neurological exam: Alert, CN II-XII Intact, Normal Gait, Oriented x3 - Psychiatric Exam Psychiatric exam: Normal Affect, Normal Mood - Skin Skin Exam: Dry, Intact, Normal Color, Warm Assessment and Plan - Assessment and Plan (Free Text) Assessment: Patient is a 58 yo male with history of T2DM and HTN. He is currently admitted to the psych unit for depression and suicidal ideation. Medicine consulted for elevated glucose and vomiting. Patient is being worked up as an outpatient for vomiting and weight loss. Patient reports uncontrolled glucose at home despite medication compliance. Plan: Type 2 diabetes mellitis - BMP: CO2 33, K 4, BG 240 - AG 8 - Beta-hydroxybutarate 0.09 - ABG pending - A1c 9.9 - Lipid panel wnl - UA: 3+ glucose, trace ketones - EKG: NSR, QTc 464 - Hypoglycemic protocol - Accuchecks ACHS with ISS (low) - Diabetic diet: food tray was seen to have syrup and orange juice, called dietary for strict adherence to diet recs - Metformin 100 mg PO BID - Novolog 15 u SC QAM, 30 u SC QPM -Dietary consulted; f/u recs -Dr Alden Ocampo consulted; f/u recs Hypertension - Monitor vitals Q4H - Clonidine 0.1 mg PO Q4H PRN - Lisinopril 5 mg PO daily Depression with suicidal ideation - Management as per psychiatry - Trazodone 50 mg PO QHS Alcohol use disorder - Withdrawal management as per psychiatry - BAL 278 on admission - AST 104, ALT 66 - CXR: no signs of aspiration - Ativan 2 mg PO Q4H - Ativan 1 mg PO Q4H PRN - Clonidine 0.1 mg PO Q4H PRN - Motrin 400 mg PO Q6H PRN - Atarax 50 mg PO Q6H PRN - MV, thiamine, folate - Cessation counseling H/o Tobacco use- 5 cigarettes/day x43 years - Lung screen 08/09/18: Lung-RADS: 2, solid 5 millimeter nodule with very low likelihood of becoming a clinically active cancer due to size. Continue annual screening with LDCT in 12 months. - CXR: Mild venous congestion. Right hilar prominence. Patchy increased markings in the right infrahilar region. Tortuous aorta. Top normal heart size. Biapical pleural thickening. -PMD notifyed Case was discussed with attending, Dr. Davalos. Patient is not in DKA. No indication to be transferred to med/surg at this time. Will continue to follow the patient. <Germania Davalos V - Last Filed: 08/31/18 20:46> Objective - Vital Signs/Intake and Output Vital Signs (last 24 hours): Temp Pulse Resp BP Pulse Ox 98.6 F 98 H 18 140/90 100 08/31/18 06:48 08/31/18 06:48 08/31/18 06:48 08/31/18 09:10 08/26/18 06:42 - Labs Labs: 08/29/18 08:28 08/31/18 08:29 Attending/Attestation - Attestation I have personally seen and examined this patient.: Yes I have fully participated in the care of the patient.: Yes I have reviewed all pertinent clinical information, including history, physical exam and plan: Yes Notes (Text): This is late computer entry for 08/27/18. Patient seen, examined and case discussed with bacteriologist medical. Medicine is consult Patient seen this morning. His sugars are uncontrolled in spite of combination of insulin and oral agents. Endocrinology on board help appreciated. Prior regiment adjusted by endocrinology. Assessment/Plan 1) Type 2 diabetes mellitus Assessment/Plan * uncontrolled; A1c 9.9 * Patient is not in DKA--> BMP: CO2 33, K 4, BG 240 and AG 8 * Beta-hydroxybutarate 0.09 * Lipid panel wnl * UA: 3+ glucose, trace ketones * EKG: NSR, QTc 464 * Hypoglycemic protocol * Accuchecks Q6H with ISS (low) * Diabetic diet * Endocrinology on board help appreciated * Novolog insulin sliding scale subq * Novolog 14 unit subqAC * Lantus 20 units subqHS * Metformin 1000mg PO BID * Enalapril 10mg PO daily 2) Hypertension Assessment/Plan * Monitor vitals Q4H * Clonidine 0.1 mg PO Q4H PRN * Enalapril 10mg PO daily 3) Depression with suicidal ideation * Management as per psychiatry * Trazodone 50 mg PO QHS 4) Alcohol use disorder * Withdrawal management as per psychiatry * BAL 278 on admission * monitor liver function tests * CXR: no signs of aspiration * Ativan 2 mg PO Q4H * Ativan 1 mg PO Q4H PRN * Clonidine 0.1 mg PO Q4H PRN * Motrin 400 mg PO Q6H PRN * Atarax 50 mg PO Q6H PRN * MV1, thiamine, folate * Cessation counseling 5) H/o Tobacco use- 5 cigarettes/day x43 years * Lung screen 08/09/18: Lung-RADS: 2, solid 5 millimeter nodule with very low likelihood of becoming a clinically active cancer due to size. Continue annual screening with LDCT in 12 months. * CXR: Mild venous congestion. Right hilar prominence. Patchy increased markings in the right infrahilar region. Tortuous aorta. Top normal heart size. Biapical pleural thickening.
[2018-08-27 08:46] LABS: HEMOGLOBIN 14.5 g/dL (12.0-18.0); MEAN CELL VOLUME 95.7 fL (80.0-94.0); MEAN CORPUSCULAR HEMOGLOBIN 32.8 pg (27.0-31.0); MEAN CORPUSCULAR HGB CONC 34.3 g/dL (33.0-37.0); MEAN PLATELET VOLUME 10.1 fL (7.2-11.7); RBC 4.42 Mil/uL (4.40-5.90); RED CELL DISTRIBUTION WIDTH 14.3 % (11.5-14.5); WHITE BLOOD COUNT 5.8 K/uL (4.8-10.8)
[2018-08-27 09:12] LABS: ALB/GLOB RATIO 1.3 (1.0-2.1); ALBUMIN 3.6 g/dL (3.5-5.0); ALT/SGPT 96 U/L (21-72); AST/SGOT 166 U/L (17-59); BLOOD UREA NITROGEN 14 mg/dL (9-20); CALCIUM 8.7 mg/dl (8.6-10.4); GFR NON-AFRICAN AMERICAN > 60
[2018-08-27] MEDS: Multiple Vitamins Tab PO SCH (09:15)
--- NOTE | 2018-08-27 09:50 | CARD ---
APPROVED REPORT Date of service: 08/26/2018 EKG Measurement Heart [id number] <Conclusion> Normal sinus rhythm Normal ECG
--- NOTE | 2018-08-27 11:50 | PCM.PYCHPN ---
Psychiatric Progress Note - Psychiatric Progress Note Patient seen today, length of contact: 15 min Patient Chief Complaint: I was feeling down.' Problems Identified/Issues Discussed: Patient was seen and evaluated, chart reviewed and discussed with the staff. Patient remained isolated and withdrawn and appears depressed. He remained confined to his room. He reports improvement in his sleep and appetite. He is taking medication denies any side effects. Symptoms are improving but he needs to stay longer for further stabilization. Supportive therapy was given Medication Change: Yes Medical Record Reviewed: Yes Mental Status Examination - Cognitive Function Orientation: Person, Place, Situation, Time Memory: Intact Attention: WNL Concentration: Poor Association: WNL Fund of Knowledge: Poor - Mood Mood: Depressed, Anxious - Affect Affect: Constricted, Depressed - Speech Speech: Soft - Formal Thought Process Formal Thought Process: No Impairment - Suicidal Ideation Suicidal Ideation: No - Homicidal Ideation Homicidal Ideation: No Goal/Treatment Plan - Goal/Treatment Plan Need for Continued Stay: Severe depression anxiety, Severe functional impairment Progress Toward Problem(s) and Goals/Treatment Plan: Major depressive disorder recurrent severe without psychotic features. Alcohol withdrawal. Alcohol use disorder severe. Patient education. Supportive therapy. CBT for relapse prevention. AR for abstinence. Ativan taper for alcohol withdrawal symptoms. Other when necessary medications. Trazodone 50 mg p.o. nightly Remeron 15 mg p.o. nightly - Smoking Cessation Smoking Cessation Initiated: No
--- NOTE | 2018-08-27 21:18 | CON ---
DATE: 08/27/2018 LOCATION: Room 534. HISTORY OF PRESENT ILLNESS: This is a 58-year-old male with known history of type 2 insulin-requiring diabetes, presenting here with major depressive disorder and suicidal ideations, currently receiving close psychiatric evaluation and management and is also being referred now for diabetic evaluation because of persistent glycemic fluctuations as noted thereof. PAST MEDICAL HISTORY: As mentioned above, history of type 2 diabetes, on Humalog taken as 30 units in the morning and 20 units in the evening with no basal insulin given thereof. He was actually seen here in the hospital several months ago and was placed on basal insulin with prandial insulin regimen as given. He is also taking metformin at 1 g b.i.d. He follows up with his primary physician on a regular basis for diabetic and medical management. History of hypertension and dyslipidemia, history of major depressive disorder with previous admissions for exacerbations of the same. FAMILY HISTORY: Positive for diabetes, hypertension . SOCIAL HISTORY: Admits to chronic alcoholism, but denies any other substance use. He has a supportive family otherwise. REVIEW OF SYSTEMS: Admits to worse in the last few days prior to admission. Also admits to insomnia, disruptive sleep patterns with anxiety and major depression setting in, in the last few weeks prior to admission. Also admits to weight loss of close to 30 pounds also in the last 3 to 4 months prior to admission. No chest pains or palpitations or PNDs. His oral intake has been variable with nausea, dyspepsia, and episodic vomiting episodes. He has been undergoing GI workup at this time and is scheduled for colonoscopy this week. Also admits to marked polyuria, nocturia, and polydipsia. PHYSICAL EXAMINATION GENERAL: This is an average built male in no apparent distress. VITAL SIGNS: Blood pressure 160/90, pulse of 100 beats per minute and regular, temperature 98, respirations 20. Height is 5 feet 7 inches, weight is 133 pounds. HEENT: Head, normocephalic. Eyes, anicteric with pink conjunctivae. Funduscopy not possible at this time. Ears, nose, and throat otherwise normal. NECK: Supple. Thyroid gland is normal in size. No carotid bruits or any cervical adenopathy. CARDIOPULMONARY: Has an adynamic precordium. S1 and S2 are rapid and regular. LUNGS: Clear to auscultation. ABDOMEN: Flat and soft with positive bowel sounds. EXTREMITIES: No peripheral edema. Pulses are +2 bilaterally. LABORATORY DATA: Latest chemistry showed a BUN of 14, sodium 131, potassium 4.3, chloride 92, CO2 of 29, glucose 408, and creatinine 0.8. His glucose was 384 pre-breakfast this morning and 109 at bedtime last night. His A1c is 9.9%. ASSESSMENT: This is a 58-year-old male with uncontrolled and decompensated type 2 insulin-requiring diabetes, presenting here with major depressive disorder and supervening suicidal ideation with concomitant marked hyperglycemic accelerations related to a subtherapeutic insulin regimen. PLAN OF MANAGEMENT: We will modify his current insulin regimen to a more physiologic basal and bolus insulin drug combination, and we will add Lantus given as 20 units subcu at bedtime daily to start tonight. We will also add NovoLog given as 14 units t.i.d. before meals to start at lunchtime today as ordered. We will modify the coverage scale to obviate hypoglycemia and detailed orders have been given. We will obtain serial chemistries and supplement accordingly as needed. We will follow. Jewell Ruano MD
[2018-08-27] MEDS ORDERED: (Lantus) Insulin Glargine, Recombinant SC SCH (22:00)
--- NOTE | 2018-08-28 07:32 | CP.PCM.PN ---
<Víctor Worthy - Last Filed: 08/28/18 14:16> Subjective - Date & Time of Evaluation Date of Evaluation: 08/28/18 Time of Evaluation: 07:32 - Subjective Subjective: HOSPITALIST SERVICE Pt seen and examined at bedside, pt denies any acute events overnight, pt complains of urger incontinence that is chronic problem over many months. Pt denies cp fc nv Objective - Vital Signs/Intake and Output Vital Signs (last 24 hours): Temp Pulse Resp BP Pulse Ox 98.7 F 90 20 106/63 100 08/27/18 07:48 08/27/18 16:23 08/27/18 07:48 08/27/18 16:23 08/26/18 06:42 - Medications Medications: Current Medications Clonidine HCl (Catapres) 0.1 mg PO Q4H PRN PRN Reason: Symptoms of alcohol withdrawl Enalapril Maleate (Vasotec) 10 mg PO DAILY [facility] Last Admin: 08/27/18 09:15 Dose: 10 mg Folic Acid (Folic Acid) 1 mg PO DAILY [facility] Last Admin: 08/27/18 09:16 Dose: 1 mg Hydroxyzine HCl (Atarax) 50 mg PO Q6H PRN PRN Reason: Anxiety Last Admin: 08/26/18 00:38 Dose: 50 mg Ibuprofen (Motrin Tab) 400 mg PO Q6 PRN PRN Reason: Pain, moderate (4-7) Influenza Virus Vaccine (Fluzone Quad [id number]) 60 mcg IM .ONCE ONE Stop: 08/29/18 10:01 Insulin Aspart (Novolog) 14 unit SC AC [facility] Last Admin: 08/27/18 16:50 Dose: Not Given Insulin Aspart (Novolog) 0 unit SC ACHS [facility]; Protocol Last Admin: 08/27/18 21:56 Dose: Not Given Insulin Glargine (Lantus) 20 unit SC HS [facility] Last Admin: 08/27/18 21:52 Dose: 20 units Lorazepam (Ativan) 2 mg PO Q4 [facility]; Taper Stop: 08/31/18 12:29 Last Admin: 08/28/18 04:42 Dose: 2 mg Lorazepam (Ativan) 1 mg PO Q4H PRN PRN Reason: Symptoms of alcohol withdrawl [facility] Last Admin: 08/27/18 17:28 Dose: 1,000 mg Mirtazapine (Remeron) 15 mg PO HS [facility] Last Admin: 08/27/18 21:50 Dose: 15 mg Multivitamins (Hexavitamin) 1 tab PO DAILY [facility] Last Admin: 08/27/18 09:15 Dose: 1 tab Ondansetron HCl (Zofran Inj) 4 mg IM DAILY@ONCE PRN PRN Reason: Nausea/Vomiting Last Admin: 08/26/18 12:26 Dose: 4 mg Ondansetron HCl (Zofran Tab) 4 mg PO Q6 PRN PRN Reason: Nausea/Vomiting Pneumococcal Polyvalent Vaccine (Pneumovax 23 Vaccine) 0.5 ml IM .ONCE ONE Stop: 08/29/18 10:01 Thiamine HCl (Vitamin B1 Tab) 100 mg PO DAILY [facility] Last Admin: 08/27/18 09:16 Dose: 100 mg Trazodone HCl (Desyrel) 50 mg PO HS PRN PRN Reason: insomnia Stop: 09/25/18 00:24 Last Admin: 08/26/18 22:10 Dose: 50 mg - Labs Labs: 08/27/18 08:34 08/27/18 08:34 - Additional Findings Additional findings: - Constitutional Appears: No Acute Distress - Head Exam Head Exam: ATRAUMATIC, NORMAL INSPECTION, NORMOCEPHALIC - Eye Exam Eye Exam: EOMI, Normal appearance, PERRL - ENT Exam ENT Exam: Mucous Membranes Moist - Neck Exam Neck exam: Positive for: Normal Inspection - Respiratory Exam Respiratory Exam: Clear to Auscultation Bilateral, NORMAL BREATHING PATTERN - Cardiovascular Exam Cardiovascular Exam: REGULAR RHYTHM, +S1, +S2 - GI/Abdominal Exam GI & Abdominal Exam: Normal Bowel Sounds, Soft - Rectal Exam Rectal Exam: Deferred - Extremities Exam Extremities exam: Positive for: normal inspection. Negative for: pedal edema, tenderness - Back Exam Back exam: NORMAL INSPECTION - Neurological Exam Neurological exam: Alert, CN II-XII Intact, Normal Gait, Oriented x3 - Psychiatric Exam Psychiatric exam: Normal Affect, Normal Mood - Skin Skin Exam: Dry, Intact, Normal Color, Warm Assessment and Plan - Assessment and Plan (Free Text) Assessment: Patient is a 58 yo male with history of T2DM and HTN. He is currently admitted to the psych unit for depression and suicidal ideation. Medicine consulted for elevated glucose and vomiting. Patient is being worked up as an outpatient for vomiting and weight loss. Patient reports uncontrolled glucose at home despite medication compliance. Plan: Type 2 diabetes mellitis - BMP: CO2 33, K 4, BG 240 - AG 8 - Beta-hydroxybutarate 0.09 - ABG pending - A1c 9.9 - Lipid panel wnl - UA: 3+ glucose, trace ketones - EKG: NSR, QTc 464 - Hypoglycemic protocol - Accuchecks ACHS with ISS (low) - Diabetic diet: food tray was seen to have syrup and orange juice, called dietary for strict adherence to diet recs - Metformin 100 mg PO BID - Novolog 14 us sc AM - Lantus 20u sc PM -Dietary consulted; f/u recs -Dr Alden Ocampo consulted; f/u recs Urinary Incontinence- Urge Type f/u UA, UO, UC, Bladder scan Hypertension - Monitor vitals Q4H - Clonidine 0.1 mg PO Q4H PRN - Lisinopril 5 mg PO daily Depression with suicidal ideation - Management as per psychiatry - Trazodone 50 mg PO QHS Alcohol use disorder - Withdrawal management as per psychiatry - BAL 278 on admission - AST 104, ALT 66 - CXR: no signs of aspiration - Ativan 2 mg PO Q4H - Ativan 1 mg PO Q4H PRN - Clonidine 0.1 mg PO Q4H PRN - Motrin 400 mg PO Q6H PRN - Atarax 50 mg PO Q6H PRN - MV, thiamine, folate - Cessation counseling H/o Tobacco use- 5 cigarettes/day x43 years - Lung screen 08/09/18: Lung-RADS: 2, solid 5 millimeter nodule with very low likelihood of becoming a clinically active cancer due to size. Continue annual screening with LDCT in 12 months. - CXR: Mild venous congestion. Right hilar prominence. Patchy increased markings in the right infrahilar region. Tortuous aorta. Top normal heart size. Biapical pleural thickening. -PMD notifyed Case was discussed with attending, Dr. Davalos. Patient is not in DKA. No indication to be transferred to med/surg at this time. Will continue to follow the patient. <Germania Davalos V - Last Filed: 08/31/18 20:49> Objective - Vital Signs/Intake and Output Vital Signs (last 24 hours): Temp Pulse Resp BP Pulse Ox 98.6 F 98 H 18 140/90 100 08/31/18 06:48 08/31/18 06:48 08/31/18 06:48 08/31/18 09:10 08/26/18 06:42 - Labs Labs: 08/29/18 08:28 08/31/18 08:29 Attending/Attestation - Attestation I have personally seen and examined this patient.: Yes I have fully participated in the care of the patient.: Yes I have reviewed all pertinent clinical information, including history, physical exam and plan: Yes Notes (Text): This is late computer entry for 08/28/18. Medicine is on consult Patient seen, examined, and case discussed with day-time resident. Patient urged to maintain a diabetic diet; has had 4 orange juices and pancakes with syrup. Patient has noted urine incontinence which is not a new problem for him. Patient's correct sodium is normalized in light of hyperglycemia. Will continue monitor sugars. Assessment/Plan 1) Type 2 diabetes mellitus Assessment/Plan * uncontrolled; A1c 9.9 * Patient is not in DKA--> BMP: CO2 33, K 4, BG 240 and AG 8 * Beta-hydroxybutarate 0.09 * Lipid panel wnl * UA: 3+ glucose, trace ketones * EKG: NSR, QTc 464 * Hypoglycemic protocol * monitor Accuchecks * Diabetic diet * Endocrinology on board help appreciated * Novolog insulin sliding scale subq * Novolog 14 unit subqAC * Lantus 20 units subqHS * Metformin 1000mg PO BID * Enalapril 10mg PO daily 2) Hypertension Assessment/Plan * Monitor vitals Q4H * Clonidine 0.1 mg PO Q4H PRN * Enalapril 10mg PO daily 3) Depression with suicidal ideation * Management as per psychiatry * Trazodone 50 mg PO QHS 4) Alcohol use disorder * Withdrawal management as per psychiatry * BAL 278 on admission * monitor liver function tests * CXR: no signs of aspiration * Ativan 2 mg PO Q4H * Ativan 1 mg PO Q4H PRN * Clonidine 0.1 mg PO Q4H PRN * Motrin 400 mg PO Q6H PRN * Atarax 50 mg PO Q6H PRN * MV1, thiamine, folate * Cessation counseling 5) H/o Tobacco use- 5 cigarettes/day x43 years * Lung screen 08/09/18: Lung-RADS: 2, solid 5 millimeter nodule with very low likelihood of becoming a clinically active cancer due to size. Continue annual screening with LDCT in 12 months. * CXR: Mild venous congestion. Right hilar prominence. Patchy increased markings in the right infrahilar region. Tortuous aorta. Top normal heart size. Biapical pleural thickening.
[2018-08-28] MEDS: (Novolog) Insulin Aspart, Recombinant 100 u/ml 10 ml vial SC SCH ×6 (07:57→21:59)
[2018-08-28 08:46] LABS: ALB/GLOB RATIO 1.1 (1.0-2.1); ALT/SGPT 84 U/L (21-72); AST/SGOT 92 U/L (17-59); BLOOD UREA NITROGEN 14 mg/dL (9-20); CALCIUM 8.5 mg/dl (8.6-10.4); GFR NON-AFRICAN AMERICAN > 60
[2018-08-28] MEDS: Multiple Vitamins Tab PO SCH (09:55)
[2018-08-28] MEDS ORDERED: (Novolog) Insulin Aspart, Recombinant 100 u/ml 10 ml vial SC SCH (16:30)
[2018-08-28] MEDS ORDERED: Dextrose 50% SYRINGE Inj (50 ml) IV PRN (16:57)
[2018-08-28] MEDS ORDERED: Glucagon Recombinant 1 mg Inj IM PRN (16:57)
[2018-08-28] MEDS ORDERED: (Lantus) Insulin Glargine, Recombinant SC SCH (22:00)
[2018-08-28] MEDS: (Lantus) Insulin Glargine, Recombinant SC SCH (22:26)
[2018-08-28] MEDS ORDERED: Aluminum Hydroxide/Magnesium Hydroxide Susp (30 mL) PO PRN (22:29)
--- NOTE | 2018-08-28 22:38 | PN ---
DATE: 08/28/2018 LOCATION: Room 534. SUBJECTIVE: This is a 58-year-old male with recent uncontrolled type 2 insulin-requiring diabetes, presenting here with major depressive disorder and suicidal ideations, currently receiving closer psychiatric evaluation and management and is also being followed closely for metabolic management. His glycemic levels are still fluctuating as noted overnight and have ranged from 302 to 343 mg/dL. It was 427 before breakfast today and 338 at bedtime last night. LABORATORY DATA: His chemistries show a BUN of 14, sodium 130, potassium 4.5, chloride 92, CO2 30, glucose 403, and creatinine 0.8. His hemoglobin A1c is elevated at 9.9%, indicative of suboptimal metabolic control of his diabetic condition even prior to this admission. ASSESSMENT AND PLAN: So at this time, we will modify once again his basal and bolus insulin regimen and increase the NovoLog to 20 units subcu t.i.d. before meals to start today as ordered. We will increase the basal insulin with Lantus to be given as 34 units subcu at bedtime daily to start tonight. We will continue to modify coverage scale using a low dose NovoLog insulin as ordered to obviate hypoglycemia. We will obtain serial chemistries and supplement accordingly as needed. We will follow. Jewell Ruano MD
--- NOTE | 2018-08-29 07:09 | CP.PCM.PN ---
<Víctor Worthy - Last Filed: 08/29/18 17:12> Subjective - Date & Time of Evaluation Date of Evaluation: 08/29/18 Time of Evaluation: 07:08 - Subjective Subjective: HOSPITALIST SERVICE Objective - Vital Signs/Intake and Output Vital Signs (last 24 hours): Temp Pulse Resp BP Pulse Ox 98.8 F 98 H 78 H 123/82 100 08/29/18 06:26 08/29/18 06:26 08/29/18 06:26 08/29/18 06:26 08/26/18 06:42 - Medications Medications: Current Medications Al Hydrox/Mg Hydrox/Simethicone (Maalox 30 Ml) 30 ml PO Q6H PRN PRN Reason: Indigestion / Heartburn Clonidine HCl (Catapres) 0.1 mg PO Q4H PRN PRN Reason: Symptoms of alcohol withdrawl Dextrose (Dextrose 50% Inj) 0 ml IV STAT PRN; Protocol PRN Reason: Hypoglycemia Protocol Dextrose (Glutose 15) 15 gm PO ONCE PRN; Protocol PRN Reason: Hypoglycemia Protocol Enalapril Maleate (Vasotec) 10 mg PO DAILY [facility] Last Admin: 08/28/18 09:57 Dose: 10 mg Folic Acid (Folic Acid) 1 mg PO DAILY [facility] Last Admin: 08/28/18 09:54 Dose: 1 mg Glucagon (Glucagen Diagnostic Kit) 0 mg IM STAT PRN; Protocol PRN Reason: Hypoglycemia Protocol Hydroxyzine HCl (Atarax) 50 mg PO Q6H PRN PRN Reason: Anxiety Last Admin: 08/26/18 00:38 Dose: 50 mg Dextrose (Dextrose 5% In Water 1000 Ml) 1,000 mls @ 0 mls/hr IV .Q0M PRN; Protocol PRN Reason: Hypoglycemia Protocol Ibuprofen (Motrin Tab) 400 mg PO Q6 PRN PRN Reason: Pain, moderate (4-7) Influenza Virus Vaccine (Fluzone Quad [id number]) 60 mcg IM .ONCE ONE Stop: 08/29/18 10:01 Insulin Aspart (Novolog) 0 unit SC ACHS [facility]; Protocol Last Admin: 08/28/18 21:59 Dose: Not Given Insulin Aspart (Novolog) 12 unit SC AC [facility] Insulin Glargine (Lantus) 24 unit SC HS [facility] Last Admin: 08/28/18 22:26 Dose: 24 units Lorazepam (Ativan) 1 mg PO Q4 [facility]; Taper Stop: 08/31/18 12:29 Last Admin: 08/29/18 04:37 Dose: 1 mg Lorazepam (Ativan) 1 mg PO Q4H PRN PRN Reason: Symptoms of alcohol withdrawl Metformin HCl (Glucophage) 1,000 mg PO BIDCC [facility] Last Admin: 08/28/18 17:49 Dose: 1,000 mg Mirtazapine (Remeron) 15 mg PO [facility] Last Admin: 08/28/18 22:26 Dose: 15 mg Multivitamins (Hexavitamin) 1 tab PO DAILY [facility] Last Admin: 08/28/18 09:55 Dose: 1 tab Ondansetron HCl (Zofran Inj) 4 mg IM DAILY@ONCE PRN PRN Reason: Nausea/Vomiting Last Admin: 08/26/18 12:26 Dose: 4 mg Ondansetron HCl (Zofran Tab) 4 mg PO Q6 PRN PRN Reason: Nausea/Vomiting Pneumococcal Polyvalent Vaccine (Pneumovax 23 Vaccine) 0.5 ml IM .ONCE ONE Stop: 08/29/18 10:01 Thiamine HCl (Vitamin B1 Tab) 100 mg PO DAILY [facility] Last Admin: 08/28/18 09:54 Dose: 100 mg Trazodone HCl (Desyrel) 50 mg PO HS PRN PRN Reason: insomnia Stop: 09/25/18 00:24 Last Admin: 08/26/18 22:10 Dose: 50 mg - Labs Labs: 08/27/18 08:34 08/28/18 06:56 - Additional Findings Additional findings: - Constitutional Appears: No Acute Distress - Head Exam Head Exam: ATRAUMATIC, NORMAL INSPECTION, NORMOCEPHALIC - Eye Exam Eye Exam: EOMI, Normal appearance, PERRL - ENT Exam ENT Exam: Mucous Membranes Moist - Neck Exam Neck exam: Positive for: Normal Inspection - Respiratory Exam Respiratory Exam: Clear to Auscultation Bilateral, NORMAL BREATHING PATTERN - Cardiovascular Exam Cardiovascular Exam: REGULAR RHYTHM, +S1, +S2 - GI/Abdominal Exam GI & Abdominal Exam: Normal Bowel Sounds, Soft - Rectal Exam Rectal Exam: Deferred - Extremities Exam Extremities exam: Positive for: normal inspection. Negative for: pedal edema, tenderness - Back Exam Back exam: NORMAL INSPECTION - Neurological Exam Neurological exam: Alert, CN II-XII Intact, Normal Gait, Oriented x3 - Psychiatric Exam Psychiatric exam: Normal Affect, Normal Mood - Skin Skin Exam: Dry, Intact, Normal Color, Warm Assessment and Plan - Assessment and Plan (Free Text) Assessment: Patient is a 58 yo male with history of T2DM and HTN. He is currently admitted to the psych unit for depression and suicidal ideation. Medicine consulted for elevated glucose and vomiting. Patient is being worked up as an outpatient for vomiting and weight loss. Patient reports uncontrolled glucose at home despite medication compliance. Plan: Type 2 diabetes mellitis - BMP: CO2 33, K 4, BG 240 - AG 8 - Beta-hydroxybutarate 0.09 - ABG pending - A1c 9.9 - Lipid panel wnl - UA: 3+ glucose, trace ketones - EKG: NSR, QTc 464 - Hypoglycemic protocol - Accuchecks ACHS with ISS (low) - Diabetic diet: food tray was seen to have syrup and orange juice, called dietary for strict adherence to diet recs - Metformin 100 mg PO BID - Novolog 12 us sc AM - Lantus 24u sc PM -Dietary consulted; f/u recs -Dr Ruano Endo consulted; f/u recs - Pt has been refusing pre meal Insulin- likely cause of hyperglycemic readings, Dr Ruano notifyed likely d/c tmrw on home insulin regimen Urinary Incontinence- Urge Type f/u UA, UO, UC, Bladder scan Hypertension - Monitor vitals Q4H - Clonidine 0.1 mg PO Q4H PRN - Lisinopril 5 mg PO daily Depression with suicidal ideation - Management as per psychiatry - Trazodone 50 mg PO QHS Alcohol use disorder - Withdrawal management as per psychiatry - BAL 278 on admission - AST 104, ALT 66 - CXR: no signs of aspiration - Ativan 2 mg PO Q4H - Ativan 1 mg PO Q4H PRN - Clonidine 0.1 mg PO Q4H PRN - Motrin 400 mg PO Q6H PRN - Atarax 50 mg PO Q6H PRN - MV, thiamine, folate - Cessation counseling H/o Tobacco use- 5 cigarettes/day x43 years - Lung screen 08/09/18: Lung-RADS: 2, solid 5 millimeter nodule with very low likelihood of becoming a clinically active cancer due to size. Continue annual screening with LDCT in 12 months. - CXR: Mild venous congestion. Right hilar prominence. Patchy increased markings in the right infrahilar region. Tortuous aorta. Top normal heart size. Biapical pleural thickening. -PMD notifyed Case was discussed with attending, Dr. Davalos. Patient is not in DKA. No in dication to be transferred to med/surg at this time. Will continue to follow the patient. <Germania Davalos V - Last Filed: 08/31/18 20:57> Objective - Vital Signs/Intake and Output Vital Signs (last 24 hours): Temp Pulse Resp BP Pulse Ox 98.6 F 98 H 18 140/90 100 08/31/18 06:48 08/31/18 06:48 08/31/18 06:48 08/31/18 09:10 08/26/18 06:42 - Labs Labs: 08/29/18 08:28 08/31/18 08:29 Attending/Attestation - Attestation I have personally seen and examined this patient.: Yes I have fully participated in the care of the patient.: Yes I have reviewed all pertinent clinical information, including history, physical exam and plan: Yes Notes (Text): This is late computer entry for 08/29/18. Patient seen, examined and case discussed with registered medical transcriptionist. Patient has refused to take his premeal insulin because he was afraid of becoming hypoglycemic. Advised to take his premeal insulin given he is eating his meals to optimize sugar control. Discussed with drilling plant operator regarding why sugars are erratically uncontrolled. Assessment/Plan 1) Type 2 diabetes mellitus Assessment/Plan * uncontrolled; A1c 9.9 * Patient is not in DKA--> BMP: CO2 33, K 4, BG 240 and AG 8 * Beta-hydroxybutarate 0.09 * Lipid panel wnl * UA: 3+ glucose, trace ketones * EKG: NSR, QTc 464 * Hypoglycemic protocol * Accuchecks Q6H with ISS (low) * Diabetic diet * Endocrinology on board help appreciated * Novolog insulin sliding scale subq * Novolog 12 unit subqAC * Lantus 20 units subqHS * Metformin 1000mg PO BID * Enalapril 10mg PO daily 2) Hypertension Assessment/Plan * Monitor vitals Q4H * Clonidine 0.1 mg PO Q4H PRN * Enalapril 10mg PO daily 3) Depression with suicidal ideation * Management as per psychiatry * Trazodone 50 mg PO QHS 4) Alcohol use disorder * Withdrawal management as per psychiatry * BAL 278 on admission * monitor liver function tests * CXR: no signs of aspiration * Ativan 2 mg PO Q4H * Ativan 1 mg PO Q4H PRN * Clonidine 0.1 mg PO Q4H PRN * Motrin 400 mg PO Q6H PRN * Atarax 50 mg PO Q6H PRN * MV1, thiamine, folate * Cessation counseling 5) H/o Tobacco use- 5 cigarettes/day x43 years * Lung screen 08/09/18: Lung-RADS: 2, solid 5 millimeter nodule with very low likelihood of becoming a clinically active cancer due to size. Continue annual screening with LDCT in 12 months. * CXR: Mild venous congestion. Right hilar prominence. Patchy increased markings in the right infrahilar region. Tortuous aorta. Top normal heart size. Biapical pleural thickening.
[2018-08-29] MEDS: (Novolog) Insulin Aspart, Recombinant 100 u/ml 10 ml vial SC SCH ×7 (08:12→22:05)
[2018-08-29 08:40] LABS: BASO % 0.6 % (0.0-2.0); EOS # 0.1 K/uL (0.0-0.7); EOS % 0.9 % (0.0-4.0); HEMOGLOBIN 13.7 g/dL (12.0-18.0); LYMPH # 1.6 K/uL (1.0-4.3); LYMPH % 26.9 % (20.0-40.0); MEAN CELL VOLUME 96.1 fL (80.0-94.0); MEAN CORPUSCULAR HEMOGLOBIN 32.6 pg (27.0-31.0); MEAN CORPUSCULAR HGB CONC 33.9 g/dL (33.0-37.0); MEAN PLATELET VOLUME 9.9 fL (7.2-11.7); MONO # 0.5 K/uL (0.0-0.8); MONO % 8.2 % (0.0-10.0); NEUT # 3.8 K/uL (1.8-7.0); NEUT % 63.4 % (50.0-75.0); NRBC % 0.1 % (0.0-2.0); RBC 4.2 Mil/uL (4.40-5.90)
[2018-08-29 09:37] LABS: ALB/GLOB RATIO 1.2 (1.0-2.1); ALBUMIN 3.2 g/dL (3.5-5.0); ALT/SGPT 73 U/L (21-72); AST/SGOT 59 U/L (17-59); BLOOD UREA NITROGEN 12 mg/dL (9-20); CALCIUM 8.9 mg/dl (8.6-10.4); GFR NON-AFRICAN AMERICAN > 60
[2018-08-29] MEDS: Multiple Vitamins Tab PO SCH (09:56)
[2018-08-29] MEDS ORDERED: Influenza Vaccine 60 MCG/0.5 ML SYR (3 yr & up) IM ONE (10:00)
[2018-08-29] MEDS ORDERED: Pneumococcal 23-Valent Vaccine IM ONE (10:00)
--- NOTE | 2018-08-29 19:12 | PN ---
DATE: 08/29/2018 ENDOCRINOLOGY FOLLOWUP NOTE LOCATION: Room 534. SUBJECTIVE: This is a 58-year-old male with recent uncontrolled type 2 insulin-requiring diabetes, now being followed closely for metabolic management. His glycemic levels have been fluctuating as noted overnight with glucose levels ranging from 86 to 148 mg/dL. LABORATORY DATA: His chemistries today show a BUN of 12, sodium 133, potassium 3.9, chloride 96, CO2 30, glucose 168, and creatinine 0.6. His A1c is elevated at 9.9% indicative of suboptimal metabolic control of his diabetic condition as noted. ASSESSMENT AND PLAN: So for now, we will continue the same modified basal and bolus insulin regimen to allow for dose equilibration and keep him on the Novolog given as 12 units t.i.d. before meals, to start today as ordered. We will continue the Lantus given as 24 units subcutaneous at bedtime daily, to start tonight. We will continue the low dose correction scale using Novolog insulin to obviate hypoglycemia and detailed orders have been given. We will follow and advice accordingly. Jewell Ruano MD
[2018-08-29] MEDS: (Lantus) Insulin Glargine, Recombinant SC SCH (22:17)
[2018-08-30] MEDS: (Novolog) Insulin Aspart, Recombinant 100 u/ml 10 ml vial SC SCH ×6 (07:34→21:13)
[2018-08-30] MEDS: Multiple Vitamins Tab PO SCH (09:07)
[2018-08-30 11:58] LABS: ALB/GLOB RATIO 1.3 (1.0-2.1); ALBUMIN 4.1 g/dL (3.5-5.0); ALT/SGPT 88 U/L (21-72); AST/SGOT 78 U/L (17-59); BLOOD UREA NITROGEN 15 mg/dL (9-20); CALCIUM 9.8 mg/dl (8.6-10.4); GFR NON-AFRICAN AMERICAN > 60
--- NOTE | 2018-08-30 12:57 | CP.PCM.PN ---
<Víctor Worthy - Last Filed: 08/30/18 16:48> Subjective - Date & Time of Evaluation Date of Evaluation: 08/30/18 Time of Evaluation: 12:53 - Subjective Subjective: HOSPITALIST SERVICE Pt seen and examined at lunchroom. Pt eating appropriate diet, agrees that he must limit refined sugar intake, no juices no syrups no sodas no sweeteners. Pt appears happy and is agreeable to plan. denies CP SOB FC [place] Objective - Vital Signs/Intake and Output Vital Signs (last 24 hours): Temp Pulse Resp BP Pulse Ox 98.7 F 91 H 20 128/84 100 08/30/18 06:43 08/30/18 06:43 08/30/18 06:43 08/30/18 09:07 08/26/18 06:42 - Medications Medications: Current Medications Al Hydrox/Mg Hydrox/Simethicone (Maalox 30 Ml) 30 ml PO Q6H PRN PRN Reason: Indigestion / Heartburn Clonidine HCl (Catapres) 0.1 mg PO Q4H PRN PRN Reason: Symptoms of alcohol withdrawl Dextrose (Dextrose 50% Inj) 0 ml IV STAT PRN; Protocol PRN Reason: Hypoglycemia Protocol Dextrose (Glutose 15) 15 gm PO ONCE PRN; Protocol PRN Reason: Hypoglycemia Protocol Enalapril Maleate (Vasotec) 10 mg PO DAILY [facility] Last Admin: 08/30/18 09:07 Dose: 10 mg Folic Acid (Folic Acid) 1 mg PO DAILY [facility] Last Admin: 08/30/18 09:07 Dose: 1 mg Glucagon (Glucagen Diagnostic Kit) 0 mg IM STAT PRN; Protocol PRN Reason: Hypoglycemia Protocol Hydroxyzine HCl (Atarax) 50 mg PO Q6H PRN PRN Reason: Anxiety Last Admin: 08/26/18 00:38 Dose: 50 mg Dextrose (Dextrose 5% In Water 1000 Ml) 1,000 mls @ 0 mls/hr IV .Q0M PRN; Protocol PRN Reason: Hypoglycemia Protocol Ibuprofen (Motrin Tab) 400 mg PO Q6 PRN PRN Reason: Pain, moderate (4-7) Insulin Aspart (Novolog) 0 unit SC ACHS [facility]; Protocol Last Admin: 08/30/18 11:36 Dose: Not Given Insulin Aspart (Novolog) 12 unit SC AC [facility] Last Admin: 08/30/18 11:54 Dose: 12 unit Insulin Glargine (Lantus) 24 unit SC HS [facility] Last Admin: 08/29/18 22:17 Dose: 24 units Lorazepam (Ativan) 1 mg PO Q24H [facility]; Taper Stop: 08/31/18 12:29 Last Admin: 08/30/18 11:51 Dose: 1 mg Lorazepam (Ativan) 1 mg PO Q4H PRN PRN Reason: Symptoms of alcohol withdrawl Metformin HCl (Glucophage) 1,000 mg PO BIDCC [facility] Last Admin: 08/30/18 08:24 Dose: 1,000 mg Mirtazapine (Remeron) 15 mg PO HS [facility] Last Admin: 08/29/18 22:18 Dose: 15 mg Multivitamins (Hexavitamin) 1 tab PO DAILY [facility] Last Admin: 08/30/18 09:07 Dose: 1 tab Ondansetron HCl (Zofran Inj) 4 mg IM DAILY@ONCE PRN PRN Reason: Nausea/Vomiting Last Admin: 08/26/18 12:26 Dose: 4 mg Ondansetron HCl (Zofran Tab) 4 mg PO Q6 PRN PRN Reason: Nausea/Vomiting Thiamine HCl (Vitamin B1 Tab) 100 mg PO DAILY [facility] Last Admin: 08/30/18 09:07 Dose: 100 mg Trazodone HCl (Desyrel) 50 mg PO HS PRN PRN Reason: insomnia Stop: 09/25/18 00:24 Last Admin: 08/26/18 22:10 Dose: 50 mg - Labs Labs: 08/29/18 08:28 08/30/18 08:44 - Additional Findings Additional findings: - Constitutional Appears: No Acute Distress - Head Exam Head Exam: ATRAUMATIC, NORMAL INSPECTION, NORMOCEPHALIC - Eye Exam Eye Exam: EOMI, Normal appearance, PERRL - ENT Exam ENT Exam: Mucous Membranes Moist - Neck Exam Neck exam: Positive for: Normal Inspection - Respiratory Exam Respiratory Exam: Clear to Auscultation Bilateral, NORMAL BREATHING PATTERN - Cardiovascular Exam Cardiovascular Exam: REGULAR RHYTHM, +S1, +S2 - GI/Abdominal Exam GI & Abdominal Exam: Normal Bowel Sounds, Soft - Rectal Exam Rectal Exam: Deferred - Extremities Exam Extremities exam: Positive for: normal inspection. Negative for: pedal edema, tenderness - Back Exam Back exam: NORMAL INSPECTION - Neurological Exam Neurological exam: Alert, CN II-XII Intact, Normal Gait, Oriented x3 - Psychiatric Exam Psychiatric exam: Normal Affect, Normal Mood - Skin Skin Exam: Dry, Intact, Normal Color, Warm Assessment and Plan - Assessment and Plan (Free Text) Assessment: Patient is a 58 yo male with history of T2DM and HTN. He is currently admitted to the psych unit for depression and suicidal ideation. Medicine consulted for elevated glucose and vomiting. Patient is being worked up as an outpatient for vomiting and weight loss. Patient reports uncontrolled glucose at home despite medication compliance. Plan: Type 2 diabetes mellitis - BMP: CO2 33, K 4, BG 240 - AG 8 - Beta-hydroxybutarate 0.09 - ABG pending - A1c 9.9 - Lipid panel wnl - UA: 3+ glucose, trace ketones - EKG: NSR, QTc 464 - Hypoglycemic protocol - Accuchecks ACHS with ISS (low) - Diabetic diet: food tray was seen to have syrup and orange juice, called dietary for strict adherence to diet recs - Metformin 100 mg PO BID - Novolog 12 u TID before meals - Lantus 24u sc PM - ISS- low -Dietary consulted; f/u recs -Dr Alden Ocampo consulted; f/u recs - Pt has been refusing pre meal Insulin- likely cause of hyperglycemic readings, Dr Ruano notifyed likely d/c tmrw on home insulin regimen Urinary Incontinence- Urge Type f/u UA, UO, UC, Bladder scan Hypertension - Monitor vitals Q4H - Clonidine 0.1 mg PO Q4H PRN - Lisinopril 5 mg PO daily Depression with suicidal ideation - Management as per psychiatry - Trazodone 50 mg PO QHS Alcohol use disorder - Withdrawal management as per psychiatry - BAL 278 on admission - AST 104, ALT 66 - CXR: no signs of aspiration - Ativan 2 mg PO Q4H - Ativan 1 mg PO Q4H PRN - Clonidine 0.1 mg PO Q4H PRN - Motrin 400 mg PO Q6H PRN - Atarax 50 mg PO Q6H PRN - MV, thiamine, folate - Cessation counseling H/o Tobacco use- 5 cigarettes/day x43 years - Lung screen 08/09/18: Lung-RADS: 2, solid 5 millimeter nodule with very low likelihood of becoming a clinically active cancer due to size. Continue annual screening with LDCT in 12 months. - CXR: Mild venous congestion. Right hilar prominence. Patchy increased markings in the right infrahilar region. Tortuous aorta. Top normal heart size. Biapical pleural thickening. -PMD notifyed Case was discussed with attending, Dr. Davalos. Patient is not in DKA. No indication to be transferred to med/surg at this time. signing off, please re consult if pt's glucose is uncontrolled with current regimen. <Germania Davalos V - Last Filed: 08/31/18 21:01> Objective - Vital Signs/Intake and Output Vital Signs (last 24 hours): Temp Pulse Resp BP Pulse Ox 98.6 F 98 H 18 140/90 100 08/31/18 06:48 08/31/18 06:48 08/31/18 06:48 08/31/18 09:10 08/26/18 06:42 - Labs Labs: 08/29/18 08:28 08/31/18 08:29 Attending/Attestation - Attestation I have personally seen and examined this patient.: Yes I have fully participated in the care of the patient.: Yes I have reviewed all pertinent clinical information, including history, physical exam and plan: Yes Notes (Text): This is late computer entry for 08/30/18. Patient seen, examined, and case discussed with medical microbiologist. Medicine on consult Following current regiment as recommended by [employer]umina plant supervisor Patient advised to make dietary changes, take medications as advised and to stop prior insulin regiment and follow-up with his PMD Patient will need to f/u with his GI to make rearrangements for his colonoscopy; since he was originally scheduled for today but delayed secondary to further management of his psych conditions. Patient's urine culture came back positive; will f/u tomorrow for finalization.
--- NOTE | 2018-08-30 17:05 | PCM.PYCHPN ---
Psychiatric Progress Note - Psychiatric Progress Note Patient seen today, length of contact: 15 min Patient Chief Complaint: I was feeling down.' Problems Identified/Issues Discussed: Patient was seen and evaluated, chart reviewed and discussed with the staff. Patient remained isolated and withdrawn and appears depressed. He remained confined to his room. He reports improvement in his sleep and appetite. He is taking medication denies any side effects. Symptoms are improving but he needs to stay longer for further stabilization. Supportive therapy was given Medication Change: Yes Medical Record Reviewed: Yes Mental Status Examination - Cognitive Function Orientation: Person, Place, Situation, Time Memory: Intact Attention: WNL Concentration: Poor Association: WNL Fund of Knowledge: Poor - Mood Mood: Depressed, Anxious - Affect Affect: Constricted, Depressed - Speech Speech: Soft - Formal Thought Process Formal Thought Process: No Impairment - Suicidal Ideation Suicidal Ideation: No - Homicidal Ideation Homicidal Ideation: No Goal/Treatment Plan - Goal/Treatment Plan Need for Continued Stay: Severe depression anxiety, Severe functional impairment Progress Toward Problem(s) and Goals/Treatment Plan: Major depressive disorder recurrent severe without psychotic features. Alcohol withdrawal. Alcohol use disorder severe. Patient education. Supportive therapy. CBT for relapse prevention. MA for abstinence. Ativan taper for alcohol withdrawal symptoms. Other when necessary medications. Trazodone 50 mg p.o. nightly Remeron 15 mg p.o. nightly
--- NOTE | 2018-08-30 17:08 | PCM.PYCHPN ---
Psychiatric Progress Note - Psychiatric Progress Note Patient seen today, length of contact: 15 min Patient Chief Complaint: I m feeling little better.' Problems Identified/Issues Discussed: Patient was seen and evaluated, chart reviewed and discussed with the staff. Per staff patient remained depressed and remained. He reports some improvement in his depressed mood and feelings of hopelessness and helplessness. He remained confined to his room. He reports improvement in his sleep and appetite. He is taking medication denies any side effects. Symptoms are improving but he needs to stay longer for further stabilization. Supportive therapy was given Medication Change: Yes Medical Record Reviewed: Yes Mental Status Examination - Cognitive Function Orientation: Person, Place, Situation, Time Memory: Intact Attention: WNL Concentration: Poor Association: WNL Fund of Knowledge: Poor - Mood Mood: Depressed, Anxious - Affect Affect: Constricted, Depressed - Speech Speech: Soft - Formal Thought Process Formal Thought Process: No Impairment - Suicidal Ideation Suicidal Ideation: No - Homicidal Ideation Homicidal Ideation: No Goal/Treatment Plan - Goal/Treatment Plan Need for Continued Stay: Severe depression anxiety, Severe functional impairment Progress Toward Problem(s) and Goals/Treatment Plan: Major depressive disorder recurrent severe without psychotic features. Alcohol withdrawal. Alcohol use disorder severe. Patient education. Supportive therapy. CBT for relapse prevention. IA for abstinence. Ativan taper for alcohol withdrawal symptoms. Other when necessary medications. Trazodone 50 mg p.o. nightly Remeron 15 mg p.o. nightly Hydroxyzine 25 mg PO Q6hr - Smoking Cessation Smoking Cessation Initiated: No
--- NOTE | 2018-08-30 17:10 | PCM.PYCHPN ---
Psychiatric Progress Note - Psychiatric Progress Note Patient seen today, length of contact: 15 min Patient Chief Complaint: I m feeling little better.' Problems Identified/Issues Discussed: Patient was seen and evaluated, chart reviewed and discussed with the staff. He reports some improvement in his depressed mood and feelings of hopelessness and helplessness. Per staff patient remained depressed and remained. He remained confined to his room. He reports improvement in his sleep and appetite. He is taking medication denies any side effects. Symptoms are improving but he needs to stay longer for further stabilization. Supportive therapy was given Medication Change: Yes Medical Record Reviewed: Yes Mental Status Examination - Cognitive Function Orientation: Person, Place, Situation, Time Memory: Intact Attention: WNL Concentration: Poor Association: WNL Fund of Knowledge: Poor - Mood Mood: Depressed, Anxious - Affect Affect: Constricted, Depressed - Speech Speech: Soft - Formal Thought Process Formal Thought Process: No Impairment - Suicidal Ideation Suicidal Ideation: No - Homicidal Ideation Homicidal Ideation: No Goal/Treatment Plan - Goal/Treatment Plan Need for Continued Stay: Severe depression anxiety, Severe functional impairment Progress Toward Problem(s) and Goals/Treatment Plan: Major depressive disorder recurrent severe without psychotic features. Alcohol withdrawal. Alcohol use disorder severe. Patient education. Supportive therapy. CBT for relapse prevention. IN for abstinence. Ativan taper for alcohol withdrawal symptoms. Other when necessary medications. Trazodone 50 mg p.o. nightly Remeron 30 mg p.o. nightly Hydroxyzine 25 mg PO Q6hr Celexa 10 mg PO QHS
[2018-08-30 21:01] LABS: URINE BACTERIA RARE (<OCC); URINE BILIRUBIN NEGATIVE (NEGATIVE); URINE BLOOD NEGATIVE (NEGATIVE); URINE CALCIUM OXALATE CRYSTALS MOD /hpf (<OCC); URINE CLARITY Hazy (Clear); URINE COLOR Yellow (YELLOW); URINE GLUCOSE (UA) 1+ mg/dL (Normal); URINE LEUKOCYTE ESTERASE TRACE Leu/uL (Negative); URINE PROTEIN NEGATIVE (NEGATIVE); URINE UROBILINOGEN NORMAL mg/dL (0.2-1.0)
--- NOTE | 2018-08-30 21:15 | PN ---
DATE: 08/30/2018 ENDOCRINOLOGY FOLLOWUP NOTE LOCATION: Room 534. This is a 58-year-old male with recent uncontrolled type 1 insulin-dependent diabetes with marked hyperglycemic accelerations related to deliberate drug omission by the patient and refusal for the usage of NovoLog insulin as recommended at this point. His glucose values overnight have ranged from 139 to 454 mg/dL. His chemistries showed a BUN of 15, sodium 138, potassium 4.5, chloride 102, CO2 of 25, glucose 166, and creatinine 0.8. So at this time, we will restart once again his basal and bolus insulin regimen with NovoLog given as 12 units subcu t.i.d. before meals to start today as ordered. We will continue the Lantus given as 24 units subcu at bedtime daily as given. We will continue also the modified and lower dosing of the NovoLog coverage scale to obviate hypoglycemia and detailed orders have been given. We will reinforce diabetic education and dietary instructions with this admission. We will follow. Jewell Ruano MD
[2018-08-30] MEDS: (Lantus) Insulin Glargine, Recombinant SC SCH (21:16)
[2018-08-31 06:49] VITALS: BP 140/90; PULSE 98; RESP 18; TEMP 98.6
[2018-08-31] MEDS: (Novolog) Insulin Aspart, Recombinant 100 u/ml 10 ml vial SC SCH ×2 (08:04→08:16)
[2018-08-31 08:56] LABS: ALB/GLOB RATIO 1.3 (1.0-2.1); ALBUMIN 4.1 g/dL (3.5-5.0); ALT/SGPT 76 U/L (21-72); AST/SGOT 65 U/L (17-59); BLOOD UREA NITROGEN 16 mg/dL (9-20); CALCIUM 9.7 mg/dl (8.6-10.4); GFR NON-AFRICAN AMERICAN > 60
[2018-08-31] MEDS: Multiple Vitamins Tab PO SCH (09:11)
--- NOTE | 2018-08-31 09:26 | CP.PCM.PN ---
<Víctor Worthy - Last Filed: 08/31/18 17:19> Subjective - Date & Time of Evaluation Date of Evaluation: 08/31/18 Time of Evaluation: 09:24 - Subjective Subjective: HOSPITALIST SERVICE Pt seen and examined in room, pt sitting by window. Pt appears happier and mood stable. Pt feels that urinary incontinence is improving. Pt denies cp fc nv sob Objective - Vital Signs/Intake and Output Vital Signs (last 24 hours): Temp Pulse Resp BP Pulse Ox 98.6 F 98 H 18 140/90 100 08/31/18 06:48 08/31/18 06:48 08/31/18 06:48 08/31/18 09:10 08/26/18 06:42 - Medications Medications: Current Medications Al Hydrox/Mg Hydrox/Simethicone (Maalox 30 Ml) 30 ml PO Q6H PRN PRN Reason: Indigestion / Heartburn Ciprofloxacin (Cipro) 500 mg PO BID [facility]; Protocol Last Admin: 08/31/18 09:10 Dose: 500 mg Citalopram Hydrobromide (Celexa) 10 mg PO DAILY [facility] Last Admin: 08/31/18 09:10 Dose: 10 mg Clonidine HCl (Catapres) 0.1 mg PO Q4H PRN PRN Reason: Symptoms of alcohol withdrawl Enalapril Maleate (Vasotec) 10 mg PO DAILY [facility] Last Admin: 08/31/18 09:10 Dose: 10 mg Folic Acid (Folic Acid) 1 mg PO DAILY [facility] Last Admin: 08/31/18 09:10 Dose: 1 mg Hydroxyzine HCl (Atarax) 50 mg PO Q6H PRN PRN Reason: Anxiety Last Admin: 08/26/18 00:38 Dose: 50 mg Ibuprofen (Motrin Tab) 400 mg PO Q6 PRN PRN Reason: Pain, moderate (4-7) Insulin Aspart (Novolog) 0 unit SC ACHS [facility]; Protocol Last Admin: 08/31/18 08:04 Dose: Not Given Insulin Aspart (Novolog) 12 unit SC AC [facility] Last Admin: 08/31/18 08:16 Dose: 12 units Insulin Glargine (Lantus) 24 unit SC HS [facility] Last Admin: 08/30/18 21:16 Dose: 24 units Metformin HCl (Glucophage) 1,000 mg PO BIDCC [facility] Last Admin: 08/31/18 08:17 Dose: 1,000 mg Mirtazapine (Remeron) 30 mg PO HS [facility] Last Admin: 08/30/18 21:15 Dose: 30 mg Multivitamins (Hexavitamin) 1 tab PO DAILY [facility] Last Admin: 08/31/18 09:11 Dose: 1 tab Ondansetron HCl (Zofran Inj) 4 mg IM DAILY@ONCE PRN PRN Reason: Nausea/Vomiting Last Admin: 08/26/18 12:26 Dose: 4 mg Ondansetron HCl (Zofran Tab) 4 mg PO Q6 PRN PRN Reason: Nausea/Vomiting Thiamine HCl (Vitamin B1 Tab) 100 mg PO DAILY [facility] Last Admin: 08/31/18 09:11 Dose: 100 mg Trazodone HCl (Desyrel) 50 mg PO HS PRN PRN Reason: insomnia Stop: 09/25/18 00:24 Last Admin: 08/26/18 22:10 Dose: 50 mg - Labs Labs: 08/29/18 08:28 08/31/18 08:29 - Additional Findings Additional findings: - Constitutional Appears: No Acute Distress - Head Exam Head Exam: ATRAUMATIC, NORMAL INSPECTION, NORMOCEPHALIC - Eye Exam Eye Exam: EOMI, Normal appearance, PERRL - ENT Exam ENT Exam: Mucous Membranes Moist - Neck Exam Neck exam: Positive for: Normal Inspection - Respiratory Exam Respiratory Exam: Clear to Auscultation Bilateral, NORMAL BREATHING PATTERN - Cardiovascular Exam Cardiovascular Exam: REGULAR RHYTHM, +S1, +S2 - GI/Abdominal Exam GI & Abdominal Exam: Normal Bowel Sounds, Soft - Rectal Exam Rectal Exam: Deferred - Extremities Exam Extremities exam: Positive for: normal inspection. Negative for: pedal edema, tenderness - Back Exam Back exam: NORMAL INSPECTION - Neurological Exam Neurological exam: Alert, CN II-XII Intact, Normal Gait, Oriented x3 - Psychiatric Exam Psychiatric exam: Normal Affect, Normal Mood - Skin Skin Exam: Dry, Intact, Normal Color, Warm Assessment and Plan - Assessment and Plan (Free Text) Assessment: Patient is a 58 yo male with history of T2DM and HTN. He is currently admitted to the psych unit for depression and suicidal ideation. Medicine consulted for elevated glucose and vomiting. Patient is being worked up as an outpatient for vomiting and weight loss. Patient reports uncontrolled glucose at home despite medication compliance. Plan: Type 2 diabetes mellitis - BMP: CO2 33, K 4, BG 240 - AG 8 - Beta-hydroxybutarate 0.09 - ABG pending - A1c 9.9 - Lipid panel wnl - UA: 3+ glucose, trace ketones - EKG: NSR, QTc 464 - Hypoglycemic protocol - Accuchecks ACHS with ISS (low) - Diabetic diet: food tray was seen to have syrup and orange juice, called dietary for strict adherence to diet recs - Metformin 100 mg PO BID - Novolog 12 u TID before meals - Lantus 24u sc PM - ISS- low -Dietary consulted; f/u recs -Dr Alden Ocampo consulted; f/u recs - Pt has been refusing pre meal Insulin- likely cause of hyperglycemic readings, Dr Ruano notifyed likely d/c tmrw on home insulin regimen Urinary Tract Infection - UC gram pos cocci - cipro 500 po qd - repeat UC f/u Hypertension - Monitor vitals Q4H - Clonidine 0.1 mg PO Q4H PRN - Lisinopril 5 mg PO daily Depression with suicidal ideation - Management as per psychiatry - Trazodone 50 mg PO QHS Alcohol use disorder - Withdrawal management as per psychiatry - BAL 278 on admission - AST 104, ALT 66 - CXR: no signs of aspiration - Ativan 2 mg PO Q4H - Ativan 1 mg PO Q4H PRN - Clonidine 0.1 mg PO Q4H PRN - Motrin 400 mg PO Q6H PRN - Atarax 50 mg PO Q6H PRN - MV, thiamine, folate - Cessation counseling H/o Tobacco use- 5 cigarettes/day x43 years - Lung screen 08/09/18: Lung-RADS: 2, solid 5 millimeter nodule with very low likelihood of becoming a clinically active cancer due to size. Continue annual screening with LDCT in 12 months. - CXR: Mild venous congestion. Right hilar prominence. Patchy increased markings in the right infrahilar region. Tortuous aorta. Top normal heart size. Biapical pleural thickening. -PMD notifyed Case was discussed with attending, Dr. Davalos. Patient is not in DKA. No indication to be transferred to med/surg at this time. <Germania Davalos V - Last Filed: 08/31/18 21:15> Objective - Vital Signs/Intake and Output Vital Signs (last 24 hours): Temp Pulse Resp BP Pulse Ox 98.6 F 98 H 18 140/90 100 08/31/18 06:48 08/31/18 06:48 08/31/18 06:48 08/31/18 09:10 08/26/18 06:42 - Labs Labs: 08/29/18 08:28 08/31/18 08:29 Attending/Attestation - Attestation I have personally seen and examined this patient.: Yes I have fully participated in the care of the patient.: Yes I have reviewed all pertinent clinical information, including history, physical exam and plan: Yes Notes (Text): Patient seen, examined and case discussed with medical laboratory technicians. Medicine is consult. Patient is in better spirits. Patient to be discharge by psych today. I advised the patient to stop his prior regiment of humalog and provided scripts for following 1) novolog 12 units before each meal 1 vital 2) Lantus 24 units at night 1 vial 3) continue his Rampril 4) continue his metformin 5) stop his glipizide on d/c 6) Cipro 500mg PO BID to cover for UTI Patient to rescheduled his outpatient colonoscopy and advised to tell them he is on insulin to know when he should hold his insulin. Patient is recommended to follow-up with his PMD: Dr Eagle and to bring his s ugar diary to help adjust his insulin. Scripts provided in the chart upon d/c Medicine to sign off. Thank you for consult. Discharge Diagnoses: 1) Type 2 diabetes mellitus Assessment/Plan * uncontrolled; A1c 9.9 * Patient is not in DKA--> BMP: CO2 33, K 4, BG 240 and AG 8 * Beta-hydroxybutarate 0.09 * Lipid panel wnl * UA: 3+ glucose, trace ketones * EKG: NSR, QTc 464 * Hypoglycemic protocol * Accuchecks Q6H with ISS (low) * Diabetic diet * Endocrinology on board help appreciated * Novolog insulin sliding scale subq * Novolog 14 unit subqAC * Lantus 20 units subqHS * Metformin 1000mg PO BID * Enalapril 10mg PO daily-->resume rampril upon discharge 2) Hypertension Assessment/Plan * Monitor vitals Q4H * Clonidine 0.1 mg PO Q4H PRN * Enalapril 10mg PO daily-->resume rampril upon discharge 3) Depression with suicidal ideation * Management as per psychiatry * Trazodone 50 mg PO QHS 4) Alcohol use disorder * Withdrawal management as per psychiatry * BAL 278 on admission * monitor liver function tests * CXR: no signs of aspiration * Ativan 2 mg PO Q4H * Ativan 1 mg PO Q4H PRN * Clonidine 0.1 mg PO Q4H PRN * Motrin 400 mg PO Q6H PRN * Atarax 50 mg PO Q6H PRN * MV1, thiamine, folate * Cessation counseling 5) H/o Tobacco use- 5 cigarettes/day x43 years * Lung screen 08/09/18: Lung-RADS: 2, solid 5 millimeter nodule with very low likelihood of becoming a clinically active cancer due to size. Continue annual screening with LDCT in 12 months. * CXR: Mild venous congestion. Right hilar prominence. Patchy increased markings in the right infrahilar region. Tortuous aorta. Top normal heart size. Biapical pleural thickening.
--- NOTE | 2018-08-31 10:57 | PCM.PYCHDC ---
Mental Status Examination - Mental Status Examination Orientation: Person, Place, Situation, Time Memory: Intact Mood: Neutral Affect: Constricted Speech: Soft Attention: WNL Concentration: WNL Association: WNL Fund of Knowledge: WNL Formal Thought Process: No Impairment Description of patient's judgement and insight: good, fair Psychotic Thoughts and Behaviors: deniers any AVH Suicidal Ideation: No Current Homicidal Ideation?: No Discharge Summary - Discharge Note Reason for Hospitalization: Patient is a 58 years old, , employed, male with history of depression and suicidal ideations for last 7 months, was taking some antidepressive medications prescribed by his PCP. Patient couldn't recall the name of the medications. Patient reported that yesterday he attempted to kill himself by grabbing a knife, family intervened and brought the patient to ER for evaluation and treatment. Patient reported that he lost some weight due to decreased appetite. Also reported decreased sleep. Denied any psychotic, manic or anxiety symptoms. No history of previous inpatient psychiatric admission. This is patient's first admission. Patient was evaluated using translation services. Director Of Surgery [id number]. Alcohol: Started at 11 years of age, increased gradually. Last used yesterday, 3 shots of vodka. Denied use of any other drugs including cocaine, cannabis or heroin. Doesn't smoke cigarettes. Patient was born in [place], has eighth grade of education. Migrated to [facility] in [place]. Working. Patient's and has 5 grown up children. Lives with family. His height is 5 feet 7 inches and weight is 133 pounds. Laboratory Data: Abnormal Lab Results 08/30/18 08/30/18 08/30/18 08:44 11:25 16:10 Sodium 138 Potassium 4.5 Chloride 102 Carbon Dioxide 25 Anion Gap 16 BUN 15 Creatinine 0.8 Est GFR ( Amer) > 60 Est GFR (Non-Af Amer) > 60 POC Glucose (mg/dL) 454 H* 347 H Random Glucose 166 H Calcium 9.8 Total Bilirubin 0.9 AST 78 H D ALT 88 H D Alkaline Phosphatase 160 H D Total Protein 7.2 Albumin 4.1 Globulin 3.1 Albumin/Globulin Ratio 1.3 Urine Color Urine Clarity Urine pH Ur Specific [place] Urine Protein Urine Glucose (UA) Urine Ketones Urine Blood Urine Nitrate Urine Bilirubin Urine Urobilinogen Ur Leukocyte Esterase Urine WBC (Auto) Calcium Oxalate Crystal Urine Bacteria 08/30/18 08/30/18 08/31/18 20:14 20:45 07:23 Sodium Potassium Chloride Carbon Dioxide Anion Gap BUN Creatinine Est GFR ( Amer) Est GFR (Non-Af Amer) POC Glucose (mg/dL) 85 87 Random Glucose Calcium Total Bilirubin AST ALT Alkaline Phosphatase Total Protein Albumin Globulin Albumin/Globulin Ratio Urine Color Yellow Urine Clarity Hazy Urine pH 5.0 Ur Specific [place] 1.012 Urine Protein Negative Urine Glucose (UA) 1+ H Urine Ketones Negative Urine Blood Negative Urine Nitrate Negative Urine Bilirubin Negative Urine Urobilinogen Normal Ur Leukocyte Esterase Trace Urine WBC (Auto) 4 Calcium Oxalate Crystal Mod H Urine Bacteria Rare 08/31/18 08:29 Sodium 139 Potassium 4.0 Chloride 99 Carbon Dioxide 27 Anion Gap 17 BUN 16 Creatinine 0.8 Est GFR ( Amer) > 60 Est GFR (Non-Af Amer) > 60 POC Glucose (mg/dL) Random Glucose 106 Calcium 9.7 Total Bilirubin 0.9 AST 65 H ALT 76 H Alkaline Phosphatase 136 H Total Protein 7.2 Albumin 4.1 Globulin 3.1 Albumin/Globulin Ratio 1.3 Urine Color Urine Clarity Urine pH Ur Specific [place] Urine Protein Urine Glucose (UA) Urine Ketones Urine Blood Urine Nitrate Urine Bilirubin Urine Urobilinogen Ur Leukocyte Esterase Urine WBC (Auto) Calcium Oxalate Crystal Urine Bacteria Consultations:: List each consultation separately and include: 1. Reason for request. 2. Findings. 3. Follow-up Summary of Hospital Course include:: 1. Description of specific treatment plan utilized for patients during their course of treatmen. 2. Summarize the time- course for resolution of acute symptoms and/or regressed behaviors. 3. Describe issues identified and worked on during hospitalization. 4. Describe medication utilized. 5. Describe medical problems identified and treated. 6. Reassessment of suicide risk - Diagnosis (1) Moderate major depression, single episode Current Visit: Yes Status: Acute (2) Alcohol dependence Current Visit: Yes Status: Acute - Final Diagnosis (DSM 5) Condition upon Discharge: STABLE DSM 5: Major depressive disorder recurrent severe without psychotic features. Alcohol withdrawal. Alcohol use disorder severe. Disposition: HOME/ ROUTINE Follow-up Treatment Plan: Major depressive disorder recurrent severe without psychotic features. Alcohol withdrawal. Alcohol use disorder severe. Patient education. Supportive therapy. CBT for relapse prevention. [place] for abstinence. Ativan taper for alcohol withdrawal symptoms. Other when necessary medications. Trazodone 50 mg p.o. nightly Remeron 30 mg p.o. nightly Hydroxyzine 25 mg PO Q6hr Celexa 10 mg PO QHS Prescriptions/Medication Reconciliation: Ciprofloxacin [Cipro] 500 mg PO BID #8 tab Citalopram [celeXA] 10 mg PO DAILY #30 tab Insulin Aspart, Recombinant [Novolog] 12 unit SC AC #1 vial Insulin Glargine, Recombina [Lantus] 24 unit SC HS #1 vial MetFORMIN [glucoPHAGE] 1,000 mg PO BID #60 tab Mirtazapine [Remeron] 30 mg PO HS #30 tab Ramipril [Altace] 5 mg PO DAILY #30 cap traZODone [Desyrel] 50 mg PO HS PRN #30 tab PRN Reason: insomnia
--- NOTE | 2018-08-31 23:15 | PN ---
DATE: 08/31/2018 ENDOCRINOLOGY FOLLOWUP NOTE LOCATION: Room 534, Psychiatry. This is a 58-year-old male with recent uncontrolled type 1 insulin dependent diabetes, presenting here with major depressive disorder and received psychiatric evaluation and management and is also being followed closely for metabolic management because of extreme subglycemic fluctuations as noted thereof. His glucose levels are much improved overnight with glucose values ranging from 87 to 106 mg/dL. It was 347 at bedtime last night. His chemistry showed a BUN of 15, sodium 138, potassium 4.5, chloride 102, CO2 of 25, glucose 166, and creatinine 0.8. So at this time, we will continue the same basal and bolus insulin regimen as given with Novolog given as 12 units t.i.d. before meals as ordered. We will continue the basal insulin given as Lantus at 24 units subcu at bedtime daily as given. We will obtain serial chemistries and supplement accordingly as needed. We will follow. Jewell Ruano MD
== END 2018-08-31 11:31 | disposition home or self-care (01) | DRG 885 ==
LOC: C.ER 20:13 → C.5E 23:11
PROC: GZHZZZZ Group Psychotherapy (ICD-10-PCS; principal; 2018-08-25)
PROC: HZ2ZZZZ Detoxification Services for Substance Abuse Treatment (ICD-10-PCS; 2018-08-25)
PROC: HZ52ZZZ Individual Psychotherapy for Substance Abuse Treatment, Cognitive-Behavioral (ICD-10-PCS; 2018-08-25)
PROC: HZ59ZZZ Individual Psychotherapy for Substance Abuse Treatment, Supportive (ICD-10-PCS; 2018-08-25)
PROC: HZ56ZZZ Individual Psychotherapy for Substance Abuse Treatment, Psychoeducation (ICD-10-PCS; 2018-08-25)
PROC: HZ42ZZZ Group Counseling for Substance Abuse Treatment, Cognitive-Behavioral (ICD-10-PCS; 2018-08-25)
PROC: HZ46ZZZ Group Counseling for Substance Abuse Treatment, Psychoeducation (ICD-10-PCS; 2018-08-25)
PROC: GZ58ZZZ Individual Psychotherapy, Cognitive-Behavioral (ICD-10-PCS; 2018-08-25)
PROC: GZ56ZZZ Individual Psychotherapy, Supportive (ICD-10-PCS; 2018-08-25)
DX: F33.2 Major depressive disorder, recurrent severe without psychotic features (principal); F10.230 Alcohol dependence with withdrawal, uncomplicated; R45.851 Suicidal ideations; E11.65 Type 2 diabetes mellitus with hyperglycemia; Y90.8 Blood alcohol level of 240 mg/100 ml or more; I10 Essential (primary) hypertension; R32 Unspecified urinary incontinence; E78.5 Hyperlipidemia, unspecified; Z62.810 Personal history of physical and sexual abuse in childhood; Z79.4 Long term (current) use of insulin; Z87.891 Personal history of nicotine dependence

== ENCOUNTER 2018-10-19 08:17 | Outpatient (CLI) | payer OTHER | END 2018-10-19 08:18 | disposition home or self-care (01) | LOC: C.USIC 08:17 ==